=== PATIENT | female | born 1965 | race Caucasian/White ===

== ENCOUNTER 2016-03-17 10:30 | Outpatient (RCR) | payer OTHER ==
[~2016-03-17 10:30] MED LIST: CITA10TA PO; TRAZ150T42 PO
== END 2016-04-08 14:50 | disposition home or self-care (01) ==
PROVIDERS: ATTEND Nurse Practitioner Community Health
DX: M54.41 Lumbago with sciatica, right side (principal)

== ENCOUNTER 2016-03-26 09:25 | Outpatient (CLI) | payer OTHER ==
[~2016-03-26] VITALS: Ht 160 cm; Wt 63.5 kg
[2016-03-26] MEDS ORDERED: BUPIVACAINE 0.25% 30 ML (SENSORCAINE) VIAL ONE (09:28)
[2016-03-26] MEDS ORDERED: TRIAMCINOLONE ACET (KENALOG-40) 40 MG/ML 1 ML VIAL ONE (09:29)
[2016-03-26 09:43] VITALS: BP 121/107
[2016-03-26 10:01] VITALS: BP 114/80
--- NOTE | 2016-03-26 14:08 | Pain Medicine-Procedure ---
Procedure Pre-Op/Post-Op Diagnosis Diagnosis: disc disorder with radiculopathy, lumbar Indications for Operation Low back pain Attending Surgeon Farzana Procedure Date of Service: Mar 26, 2016 Procedure: Lumbar Epidural Steroid Injection at the L5-S1 level under Fluoroscopic Guidance Procedure: Patient was identified in the holding area. After risks, benefits, and alternatives were discussed with the patient, informed consent was obtained. Patient was brought to the fluoroscopy suite and placed prone on the procedure room table. A time out was performed. Vital signs were monitored throughout the procedure. The patients low back was prepped and draped in the usual sterile fashion. The patients skin was anesthetized using 2% Lidocaine. A Tuohy needle was inserted and advanced to the L5-S1 epidural space under fluoroscopic guidance using the loss of resistance technique and intermittent projection of fluoroscopy. There was no paresthesia with needle placement. The needle position was confirmed in both the AP and lateral view. After negative aspiration 2ml of contrast was injected under live fluoroscopy which showed good spread of the contrast in the epidural space at the appropriate level, there was no intravascular or subarachnoid spread. Again, after negative aspiration for heme or CSF, 2 ml of 0.25% Bupivicaine, 2ml of preservative free normal saline, and 80mg of Kenalog was injected. The needle was removed and a sterile bandage was placed and the patient was transferred to the recovery area in stable condition. After a brief period of observation, patient was discharged to home with no new neurological deficits and no apparent complications. Complications None MOO POWERS MD Mar 26, 2016 2:08 pm
== END 2016-03-26 10:02 | disposition home or self-care (01) ==
LOC: CARD 09:25
PROVIDERS: ATTEND Pain Medicine Pain Medicine
DX: M51.16 Intervertebral disc disorders with radiculopathy, lumbar region (principal); M43.16 Spondylolisthesis, lumbar region; Z79.899 Other long term (current) drug therapy
CPT/HCPCS: 62323

== ENCOUNTER 2016-05-21 07:54 | Outpatient (CLI) | payer OTHER ==
[~2016-05-21] VITALS: Ht 160 cm; Wt 63.5 kg
--- OUTSIDE RECORDS SUMMARY | 2016-05-21 08:00 | XMS REPORT | Continuity of Care Document ---
Author Author [facility] Organization [facility] Address Unknown Phone Unavailable Care Team Providers Care County Program Technician Name Role Phone PCP Unavailable Source Comments Some departments are not documenting in the electronic medical record. If you do not see the information that you expected, contact Release of Information in the Health Information Management department at [phone] for further assistance in locating additional records.[facility] Active Allergies and Adverse Reactions Not on File Current Medications Not on file Active Problems Not on file Social History Tobacco Use Types Packs/Day Years Used Date Never Assessed Plan of Care Date Type Specialty Providers Description 08/23/2016 Appointment Orthopedic Surgery Shaista Crawford MD [address] [facility] [address] [place] [address] [phone] (Fax) Health Maintenance Due Date Last Done Comments Physical (Comprehensive) 1973 Exam Pertussis Vaccine 1977 Tetanus Vaccine 06/07/1983 Cervical Cancer Screening 06/07/1987 Breast Cancer Screening 2006 Influenza Vaccine 11/05/2016 Results from Last 3 Months Not on file
[2016-05-21] MEDS ORDERED: TRIAMCINOLONE ACET (KENALOG-40) 40 MG/ML 1 ML VIAL ONE (08:06)
[2016-05-21] MEDS ORDERED: LIDOCAINE 1% INJ 20 ML (XYLOCAINE) VIAL ONE (08:06)
[2016-05-21] MEDS ORDERED: BUPIVACAINE 0.25% 30 ML (SENSORCAINE) VIAL ONE (08:06)
[2016-05-21 08:11] VITALS: BP 133/83
[2016-05-21 08:52] VITALS: BP 133/78
--- NOTE | 2016-05-21 11:58 | Pain Medicine-Procedure ---
Procedure Pre-Op/Post-Op Diagnosis Diagnosis: disc disorder with radiculopathy, lumbar Indications for Operation Low back pain Attending Surgeon Farzana Procedure Date of Service: May 21, 2016 Procedure: Lumbar Epidural Steroid Injection at the L5-S1 level under Fluoroscopic Guidance Procedure: Patient was identified in the holding area. After risks, benefits, and alternatives were discussed with the patient, informed consent was obtained. Patient was brought to the fluoroscopy suite and placed prone on the procedure room table. A time out was performed. Vital signs were monitored throughout the procedure. The patients low back was prepped and draped in the usual sterile fashion. The patients skin was anesthetized using 2% Lidocaine. A Tuohy needle was inserted and advanced to the L5-S1 epidural space under fluoroscopic guidance using the loss of resistance technique and intermittent projection of fluoroscopy. There was no paresthesia with needle placement. The needle position was confirmed in both the AP and lateral view. After negative aspiration 2ml of contrast was injected under live fluoroscopy which showed good spread of the contrast in the epidural space at the appropriate level, there was no intravascular or subarachnoid spread. Again, after negative aspiration for heme or CSF, 2 ml of 0.25% Bupivicaine, 2ml of preservative free normal saline, and 80mg of Kenalog was injected. The needle was removed and a sterile bandage was placed and the patient was transferred to the recovery area in stable condition. After a brief period of observation, patient was discharged to home with no new neurological deficits and no apparent complications. Complications None MOO POWERS MD May 21, 2016 11:57 am
== END 2016-05-21 08:54 | disposition home or self-care (01) ==
LOC: CARD 07:54
PROVIDERS: ATTEND Pain Medicine Pain Medicine
DX: M51.16 Intervertebral disc disorders with radiculopathy, lumbar region (principal); M43.16 Spondylolisthesis, lumbar region; Z79.899 Other long term (current) drug therapy
CPT/HCPCS: 62323

== ENCOUNTER → 2016-12-17 | Outpatient (CLI) | payer OTHER ==
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
== END ==
LOC: RAD 13:12
PROVIDERS: ATTEND Nurse Practitioner Family
DX: F07.81 Postconcussional syndrome (principal)
CPT/HCPCS: 70450

== ENCOUNTER 2016-12-22 16:14 | Emergency (ER) | payer SELFPAY ==
[~2016-12-22] VITALS: Ht 160 cm; Wt 75.7 kg
--- OUTSIDE RECORDS SUMMARY | 2016-12-22 16:21 | XMS REPORT ---
Author Author AUDREY DUNCAN Organization [employer] Address Unknown Phone Unavailable Care Team Providers Care Load Dispatcher Local Name Role Phone AUDREY DUNCAN CP Unavailable Allergies, Adverse Reactions, Alerts Substance Reaction Event Type N.K.D.A. Info Not Available Non Drug Allergy Problems Problem Type Condition Code Onset Dates Condition Status Problem Lumbago with sciatica, right side M54.41 Active Problem Other chronic pain G89.29 Active Problem Lumbago with sciatica, left side M54.42 Active Assessment Other chronic pain G89.29 Active Assessment Lumbago with sciatica, left side M54.42 Active Assessment Lumbago with sciatica, right side M54.41 Active Medications No Known Medications Procedures Procedure Coding System Code Date Office Visit, Est Pt., Level 3 CPT-4 19241 Dec 12, 2015 TORADOL (IM) 60 MG/2ML (UP TO 15 MG) CPT-4 J1885 Dec 12, 2015 X-RAY EXAM OF LOWER SPINE CPT-4 22853 Dec 12, 2015 DEPO MEDROL 40 MG/ML CPT-4 J1030 Dec 12, 2015 THER/PROPH/DIAG INJ, SC/IM CPT-4 07954 Dec 12, 2015 Vital Signs Date/Time: Dec 12, 2015 Cardiac Monitoring Heart Rate 90 bpm Weight 145 lbs Height 64 in BMI 24.89 Index Blood Pressure Diastolic 80 mmHg Blood Pressure Systolic 122 mmHg Results No Known Results Summary Purpose [employer] Submission
--- OUTSIDE RECORDS SUMMARY | 2016-12-22 16:21 | XMS REPORT ---
Author Author SURAJ DELUNA [facility] Address [address] [place] [address] Care Team Providers Care Carry Out Clerk And Shelf Stocker Name Role Phone SURAJ DELUNA Unavailable PROBLEMS Type Condition ICD9-CM Code [id number] Code Onset Dates Condition Status SNOMED Code Problem Back pain of lumbar region with sciatica M54.40 Active 504299189 Problem Lumbago with sciatica, left side M54.42 Active 221723324 Assessment Back pain of lumbar region with sciatica M54.40 Feb, Active 777087879 Assessment Homeless Z59.0 Feb, Active 01574479 Problem Lumbago with sciatica, right side M54.41 Active 833124182 Problem Other chronic pain G89.29 Active 67801791 ALLERGIES Substance Reaction Event Type Date Status N.K.D.A. Unknown Non Drug Allergy Feb, Unknown SOCIAL HISTORY No smoking Hx information available PLAN OF CARE VITAL SIGNS Height 64 in 2016-02-12 Weight 140.7 lbs 2016-02-12 Heart Rate 80 bpm 2016-02-12 Respiratory Rate 18 2016-02-12 BMI 24.15 kg/m2 2016-02-12 Blood pressure systolic 108 mmHg 2016-02-12 Blood pressure diastolic 72 mmHg 2016-02-12 MEDICATIONS Medication Instructions Dosage Frequency Start Date End Date Duration Status Gabapentin 300 MG Orally 3 times a day 1 capsule 8h Jan, Active RESULTS No Results PROCEDURES Procedure Date Ordered Related Diagnosis Body Site Office Visit, Est Pt., Level 3 Feb 12, 2016 IMMUNIZATIONS No Known Immunizations
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
--- OUTSIDE RECORDS SUMMARY | 2016-12-22 16:21 | XMS REPORT ---
Author Author NARDA LIVINGSTON [facility] Address [address] [place] [address] Care Team Providers Care Vamp Cut Out Worker Name Role Phone NARDA LIVINGSTON Unavailable PROBLEMS Type Condition ICD9-CM Code [id number] Code Onset Dates Condition Status SNOMED Code Problem Lumbago with sciatica, right side M54.41 Active 502890725 Problem Lumbago with sciatica, left side M54.42 Active 653245753 Problem Primary osteoarthritis of both knees M17.0 Active 540044518 Problem Pain in right knee M25.561 Active 54237863 Problem Back pain of lumbar region with sciatica M54.40 Active 339948164 Problem Other chronic pain G89.29 Active 33141335 Problem Pain in left knee M25.562 Active 69573412 Problem Lumbago with sciatica, unspecified side M54.40 Active 325017916 ALLERGIES No Information SOCIAL HISTORY Never Assessed PLAN OF CARE Activity Details Follow Up prn Reason: VITAL SIGNS Height 64 in 2016-04-22 Blood pressure systolic 122 mmHg 2016-04-22 Blood pressure diastolic 76 mmHg 2016-04-22 MEDICATIONS Unknown Medications RESULTS No Results PROCEDURES No Known procedures IMMUNIZATIONS No Known Immunizations MEDICAL (GENERAL) HISTORY Type Description Date Medical History anxiety Medical History shingles Medical History bakers cyst- knee Medical History chronic back pain Surgical History lumpectomy left breast Surgical History right ankle surgery 2001
--- OUTSIDE RECORDS SUMMARY | 2016-12-22 16:21 | XMS REPORT ---
Author Author SEE ZAZUETA [facility] e[employer] Address Unknown Phone Unavailable Care Team Providers Care Vision Care Associate Name Role Phone SEE ZAZUETA CP Unavailable Allergies, Adverse Reactions, Alerts Substance Reaction Event Type N.K.D.A. Info Not Available Non Drug Allergy Problems Problem Type Condition Code Onset Dates Condition Status Assessment Encounter for immunization Z23 Active Assessment Back pain of lumbar region with sciatica M54.40 Active Medications Medication Code System Code Instructions Start Date End Date Status Dosage PredniSONE [facility] [address]-60 50 MG Orally Once a day Oct 19, 2015 Oct 24, 2015 1 tablet Ibuprofen [facility] [address]-82 800 MG Orally Three times a day Oct 19, 2015 Oct 24, 2015 1 tablet Procedures Procedure Coding System Code Date THER/PROPH/DIAG INJ, SC/IM CPT-4 42952 Oct 21, 2015 TDAP (BOOSTRIX) CPT-4 75689 Oct 21, 2015 TORADOL (IM) 60 MG/2ML (UP TO 15 MG) CPT-4 J1885 Oct 21, 2015 Office Visit, Est Pt., Level 4 CPT-4 07557 Oct 21, 2015 SINGLE IMMUNIZATION ADMIN CPT-4 98408 Oct 21, 2015 Vital Signs Date/Time: Oct 21, 2015 Cardiac Monitoring Heart Rate 88 bpm Weight 149.2 lbs Height 64 in BMI 25.61 Index Blood Pressure Diastolic 82 mmHg Blood Pressure Systolic 144 mmHg Results No Known Results Immunizations Vaccine Administration Date TDAP (BOOSTRIX) Oct 21, 2015 Summary Purpose eClinicalWorks Submission
--- OUTSIDE RECORDS SUMMARY | 2016-12-22 16:21 | XMS REPORT ---
Author Author SURAJ DELUNA Organization [employer] Address Unknown Phone Unavailable Care Team Providers Care Mold Stamper And Repairer Name Role Phone SURAJ DELUNA CP Unavailable Allergies No Known Allergies Problems Problem Type Condition Code Onset Dates Condition Status Problem Lumbago with sciatica, right side M54.41 Active Problem Other chronic pain G89.29 Active Problem Lumbago with sciatica, left side M54.42 Active Assessment Lumbago with sciatica, right side M54.41 Active Medications Medication Code System Code Instructions Start Date End Date Status Dosage Benadryl [facility] [address]-99 25 MG Orally not defined Gabapentin [facility] [address]-69 300 MG Orally 2 times a day Jan 16, 2016 1 capsule Results No Known Results Summary Purpose [employer]ClinicalWorks Submission
--- OUTSIDE RECORDS SUMMARY | 2016-12-22 16:21 | XMS REPORT ---
Author Author SURAJ DELUNA [facility] Address [address] [place] [address] Care Team Providers Care Automotive Brake Specialist Name Role Phone SURAJ DELUNA Unavailable PROBLEMS Type Condition ICD9-CM Code AQE12-DG Code Onset Dates Condition Status SNOMED Code Problem Other chronic pain G89.29 Active 20567758 Problem Pain in left knee M25.562 Active 66522963 Problem Pain in right knee M25.561 Active 04568567 Problem Lumbago with sciatica, left side M54.42 Active 087124098 Problem Lumbago with sciatica, right side M54.41 Active 683775664 Problem Lumbago with sciatica, unspecified side M54.40 Active 202766608 Problem Back pain of lumbar region with sciatica M54.40 Active 285487491 ALLERGIES Unknown Allergies SOCIAL HISTORY No smoking Hx information available PLAN OF CARE VITAL SIGNS MEDICATIONS Unknown Medications RESULTS No Results PROCEDURES No Known procedures IMMUNIZATIONS No Known Immunizations
--- OUTSIDE RECORDS SUMMARY | 2016-12-22 16:22 | XMS REPORT ---
Author Author SURAJ DELUNA [facility] Address [address] [place] [address] Care Team Providers Care Brake Drum Molder Name Role Phone SURAJ DELUNA Unavailable PROBLEMS Type Condition ICD9-CM Code ESW74-GQ Code Onset Dates Condition Status SNOMED Code Problem Lumbago with sciatica, left side M54.42 Active 756489468 Problem Pain in right knee M25.561 Active 39683598 Problem Pain in left knee M25.562 Active 40577279 Problem Other chronic pain G89.29 Active 53725470 Problem Lumbago with sciatica, right side M54.41 Active 839842369 Problem Lumbago with sciatica, unspecified side M54.40 Active 659230628 Problem Back pain of lumbar region with sciatica M54.40 Active 026809068 ALLERGIES Unknown Allergies SOCIAL HISTORY No smoking Hx information available PLAN OF CARE VITAL SIGNS MEDICATIONS Unknown Medications RESULTS No Results PROCEDURES No Known procedures IMMUNIZATIONS No Known Immunizations
--- OUTSIDE RECORDS SUMMARY | 2016-12-22 16:22 | XMS REPORT ---
Author Author SURAJ DELUNA [facility] Address [address] [place] [address] Care Team Providers Care Newspaper Peddler Name Role Phone SURAJ DELUNA Unavailable PROBLEMS Type Condition ICD9-CM Code OUX10-MD Code Onset Dates Condition Status SNOMED Code Problem Lumbago with sciatica, left side M54.42 Active 388269491 Problem Pain in right knee M25.561 Active 20256109 Problem Pain in left knee M25.562 Active 51289803 Problem Other chronic pain G89.29 Active 79768181 Problem Lumbago with sciatica, right side M54.41 Active 046256380 Problem Lumbago with sciatica, unspecified side M54.40 Active 297300249 Problem Back pain of lumbar region with sciatica M54.40 Active 560552233 ALLERGIES Unknown Allergies SOCIAL HISTORY No smoking Hx information available PLAN OF CARE VITAL SIGNS MEDICATIONS Unknown Medications RESULTS No Results PROCEDURES No Known procedures IMMUNIZATIONS No Known Immunizations
--- OUTSIDE RECORDS SUMMARY | 2016-12-22 16:22 | XMS REPORT ---
Author Author SURAJ DELUNA [facility] Address [address] [place] [address] Care Team Providers Care Weapons Specialist Name Role Phone SURAJ DELUNA Unavailable PROBLEMS Type Condition ICD9-CM Code XTC26-SF Code Onset Dates Condition Status SNOMED Code Problem Lumbago with sciatica, unspecified side M54.40 Active 410184126 Problem Back pain of lumbar region with sciatica M54.40 Active 976582713 Problem Other chronic pain G89.29 Active 01471229 Assessment Lumbago with sciatica, unspecified side M54.40 Feb, Active 534791717 Problem Lumbago with sciatica, left side M54.42 Active 769130868 Problem Lumbago with sciatica, right side M54.41 Active 280631685 ALLERGIES No Known Allergies SOCIAL HISTORY No smoking Hx information available PLAN OF CARE Activity Details Pending Test MRI : Lumbar w/o contrast ,Reason: VITAL SIGNS MEDICATIONS No Known Medications RESULTS Name Result Date Reference Range MRI : Lumbar w/o contrast 2016-02-19 PROCEDURES No Known procedures IMMUNIZATIONS No Known Immunizations
--- OUTSIDE RECORDS SUMMARY | 2016-12-22 16:22 | XMS REPORT ---
Author Author SEE ZAZUETA Organization [employer] Address Unknown Phone Unavailable Care Team Providers Care Music Composition Teacher Name Role Phone SEE ZAZUETA CP Unavailable Allergies No Known Allergies Problems No Known Problems Medications No Known Medications Results No Known Results Summary Purpose eClinicalWorks Submission
--- OUTSIDE RECORDS SUMMARY | 2016-12-22 16:22 | XMS REPORT ---
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
--- OUTSIDE RECORDS SUMMARY | 2016-12-22 16:22 | XMS REPORT ---
Author Author SURAJ DELUNA [facility] Address [address] [place] [address] Care Team Providers Care Correction Lieutenant Name Role Phone SURAJ DELUNA Unavailable PROBLEMS Type Condition ICD9-CM Code AFG04-HF Code Onset Dates Condition Status SNOMED Code Assessment Cervical cancer screening Z12.4 Feb, Active 369000451 Assessment Breast cancer screening Z12.39 Feb, Active 309707849 Problem Lumbago with sciatica, unspecified side M54.40 Active 819260972 Problem Back pain of lumbar region with sciatica M54.40 Active 304870694 Problem Other chronic pain G89.29 Active 26811130 Assessment Routine gynecological examination V72.31 Feb, Active 193876563773987 Problem Lumbago with sciatica, left side M54.42 Active 563817011 Problem Lumbago with sciatica, right side M54.41 Active 664922352 ALLERGIES Substance Reaction Event Type Date Status N.K.D.A. Unknown Non Drug Allergy Feb, Unknown SOCIAL HISTORY No smoking Hx information available PLAN OF CARE Activity Details Pending Test CULTURE, GENITAL Pending Test PAP TEST W/ HPV REGARDLESS Pending Test Mammogram, Bilateral Screening prn,Reason: VITAL SIGNS Height 64 in 2016-02-16 Weight 140.5 lbs 2016-02-16 Heart Rate 88 bpm 2016-02-16 Respiratory Rate 22 2016-02-16 BMI 24.11 kg/m2 2016-02-16 Blood pressure systolic 98 mmHg 2016-02-16 Blood pressure diastolic 78 mmHg 2016-02-16 MEDICATIONS Medication Instructions Dosage Frequency Start Date End Date Duration Status Gabapentin 300 MG Orally 3 times a day 1 capsule 8h Jan, Active RESULTS Name Result Date Reference Range PDF Report 2016-02-16 PDF Report1 LCLS CULTURE, GENITAL 2016-02-16 Genital Culture, Routine Final report Result 1 PAP TEST W/ HPV REGARDLESS 2016-02-16 DIAGNOSIS: Specimen adequacy: Clinician provided ICD10: Performed by: . . Pathologist provided ICD10: Note: HPV, high-risk Negative Negative Mammogram, Bilateral Screening 2016-02-19 PROCEDURES Procedure Date Ordered Related Diagnosis Body Site SPECIMEN HANDLING Feb 16, 2016 Office Visit, Est Pt., Level 4 Feb 16, 2016 CULTURE, BACTERIA, OTHER Feb 16, 2016 IMMUNIZATIONS No Known Immunizations
--- OUTSIDE RECORDS SUMMARY | 2016-12-22 16:22 | XMS REPORT ---
Author Author AMRANDA ROUSSEAU Organization [employer] Address Unknown Phone Unavailable Care Team Providers Care Leak Inspector Name Role Phone MARANDA ROUSSEAU CP Unavailable Allergies, Adverse Reactions, Alerts Substance Reaction Event Type N.K.D.A. 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 Problem Other specified menopausal and postmenopausal disorder 627.8 Active Problem Spasm of muscle 728.85 Active Problem Other syndromes affecting cervical region 723.8 Active Medications Medication Code System Code Instructions Start Date End Date Status Dosage PredniSONE [facility] [address]-03 50 MG Orally Once a day Oct 19, 2015 Oct 24, 2015 1 tablet PredniSONE [facility] [address]-30 10 MG Orally Once a day Oct 19, 2015 1 tablet Ibuprofen [facility] [address]-92 800 MG Orally Three times a day Oct 19, 2015 Oct 24, 2015 1 tablet Procedures Procedure Coding System Code Date Office Visit, Est Pt., Level 3 CPT-4 41067 Oct 19, 2015 Vital Signs Date/Time: Oct 19, 2015 Cardiac Monitoring Heart Rate 84 bpm Weight 144.2 lbs Height 64 in BMI 24.75 Index Blood Pressure Diastolic 76 mmHg Blood Pressure Systolic 118 mmHg Results No Known Results Summary Purpose [employer] Submission
--- OUTSIDE RECORDS SUMMARY | 2016-12-22 16:24 | XMS REPORT | Continuity of Care Document ---
Author Author [facility] Address Unknown Phone Unavailable Allergies Active Description Code Type Severity Reaction Onset Reported/Identified Relationship to Patient Clinical Status Yes Methotrexate Drug Allergy 07/14/2010 Yes Methotrexate Drug Allergy N/A N/A 07/14/2010 Yes No Allergy Information Available [id number] Drug Allergy Unknown N/A 11/28/2011 Medications Problems Date Dx Coded Attending Type Code Diagnosis Diagnosed By 02/03/1449 SURAJ DELUNA Ot M54.41 LUMBAGO WITH SCIATICA, RIGHT SIDE 09/12/2007 296.90 MOOD DISORDER 09/12/2007 401.1 HYPERTENSION, BENIGN ESSENTIAL 09/12/2007 466.0 Bronchitis, Acute 09/12/2007 296.90 MOOD DISORDER 09/12/2007 401.1 HYPERTENSION, BENIGN ESSENTIAL 09/12/2007 466.0 Bronchitis, Acute 09/12/2007 PASCUAL DO, EVY K 296.90 MOOD DISORDER 09/12/2007 PASCUAL DO, EVY K 401.1 HYPERTENSION, BENIGN ESSENTIAL 09/12/2007 PASCUAL DO, EVY K 466.0 Bronchitis, Acute 09/12/2007 296.90 MOOD DISORDER 09/12/2007 401.1 HYPERTENSION, BENIGN ESSENTIAL 09/12/2007 466.0 Bronchitis, Acute 09/12/2007 CLINTON XIAO APRN ELISA N 296.90 MOOD DISORDER 09/12/2007 ALONZO CASHDARREN WORK DISTRIBUTOR, ELISA N 401.1 HYPERTENSION, BENIGN ESSENTIAL 09/12/2007 ALONZO CASHERO WORK DISTRIBUTOR, ELISA N 466.0 Bronchitis, Acute 09/12/2007 PASCUAL DO, EVY K 296.90 MOOD DISORDER 09/12/2007 PASCUAL DO, EVY K 401.1 HYPERTENSION, BENIGN ESSENTIAL 09/12/2007 PASCUAL DO, EVY K 466.0 Bronchitis, Acute 09/12/2007 PASCUAL DO, EVY K 296.90 MOOD DISORDER 09/12/2007 PASCUAL DO, EVY K 401.1 HYPERTENSION, BENIGN ESSENTIAL 09/12/2007 PASCUAL DO, EVY K 466.0 Bronchitis, Acute 09/12/2007 PASCUAL DO EVY K 296.90 MOOD DISORDER 09/12/2007 PASCUAL DO EVY K 401.1 HYPERTENSION, BENIGN ESSENTIAL 09/12/2007 PASCUAL DO EVY K 466.0 Bronchitis, Acute 09/27/2007 465.9 Upper Respiratory Infection 09/27/2007 465.9 Upper Respiratory Infection 09/27/2007 PASCUAL DO EVY K 465.9 Upper Respiratory Infection 09/27/2007 465.9 Upper Respiratory Infection 09/27/2007 JHONATHAN ASHLEY APRNCY N 465.9 Upper Respiratory Infection 09/27/2007 PASCUAL DO EVY K 465.9 Upper Respiratory Infection 09/27/2007 PASCUAL DO EVY K 465.9 Upper Respiratory Infection 09/27/2007 PASCUAL DO EVY K 465.9 Upper Respiratory Infection 09/28/2007 V25.40 CONTRACEPTIVE SURVEILLANCE UNSPECIFIED 09/28/2007 V25.40 CONTRACEPTIVE SURVEILLANCE UNSPECIFIED 09/28/2007 ROSELINE PASCUAL DOA K V25.40 CONTRACEPTIVE SURVEILLANCE UNSPECIFIED 09/28/2007 V25.40 CONTRACEPTIVE SURVEILLANCE UNSPECIFIED 09/28/2007 ELISA ASHLEY APRN N V25.40 CONTRACEPTIVE SURVEILLANCE UNSPECIFIED 09/28/2007 PASCUAL DO EVY K V25.40 CONTRACEPTIVE SURVEILLANCE UNSPECIFIED 09/28/2007 SAMARA MONTENEGRO EVY K V25.40 CONTRACEPTIVE SURVEILLANCE UNSPECIFIED 09/28/2007 PASCUAL DO EVY K V25.40 CONTRACEPTIVE SURVEILLANCE UNSPECIFIED 12/14/2007 V25.49 SURVEILLANCE OF OTHER CONTRACEPTIVE METHOD 12/14/2007 V25.49 SURVEILLANCE OF OTHER CONTRACEPTIVE METHOD 12/14/2007 ROSELINE PASCUAL DOA K V25.49 SURVEILLANCE OF OTHER CONTRACEPTIVE METHOD 12/14/2007 V25.49 SURVEILLANCE OF OTHER CONTRACEPTIVE METHOD 12/14/2007 ELISA ASHLEY APRN N V25.49 SURVEILLANCE OF OTHER CONTRACEPTIVE METHOD 12/14/2007 PASCUAL DO EVY K V25.49 SURVEILLANCE OF OTHER CONTRACEPTIVE METHOD 12/14/2007 PASCUAL DO EVY K V25.49 SURVEILLANCE OF OTHER CONTRACEPTIVE METHOD 12/14/2007 PASCUAL DO EVY K V25.49 SURVEILLANCE OF OTHER CONTRACEPTIVE METHOD 06/21/2008 381.4 Otitis Media Nonsuppurative Both Ears 06/21/2008 462 Acute Pharyngitis 06/21/2008 787.91 Diarrhea 06/21/2008 381.4 Otitis Media Nonsuppurative Both Ears 06/21/2008 462 Acute Pharyngitis 06/21/2008 787.91 Diarrhea 06/21/2008 PASCUAL DO, EVY K 381.4 Otitis Media Nonsuppurative Both Ears 06/21/2008 PASCUAL DO, EVY K 462 Acute Pharyngitis 06/21/2008 PASCUAL DO, EVY K 787.91 Diarrhea 06/21/2008 381.4 Otitis Media Nonsuppurative Both Ears 06/21/2008 462 Acute Pharyngitis 06/21/2008 787.91 Diarrhea 06/21/2008 ALONZO CASHERO WORK DISTRIBUTOR, ELISA N 381.4 Otitis Media Nonsuppurative Both Ears 06/21/2008 ALONZO CASHERO WORK DISTRIBUTOR, ELISA N 462 Acute Pharyngitis 06/21/2008 ALONZO CASHERO WORK DISTRIBUTOR, ELISA N 787.91 Diarrhea 06/21/2008 PASCUAL DO EVY K 381.4 Otitis Media Nonsuppurative Both Ears 06/21/2008 PASCUAL DO, EVY K 462 Acute Pharyngitis 06/21/2008 PASCUAL DO, EVY K 787.91 Diarrhea 06/21/2008 PASCUAL DO, EVY K 381.4 Otitis Media Nonsuppurative Both Ears 06/21/2008 PASCUAL DO, EVY K 462 Acute Pharyngitis 06/21/2008 PASCUAL DO, EVY K 787.91 Diarrhea 06/21/2008 PASCUAL DO, EVY K 381.4 Otitis Media Nonsuppurative Both Ears 06/21/2008 PASCUAL DO, EVY K 462 Acute Pharyngitis 06/21/2008 PASCUAL DO, EVY K 787.91 Diarrhea 01/03/2009 627.9 MENOPAUSAL AND POSTMENOPAUSAL DISORDER UNSPECIFIED 01/03/2009 719.08 EFFUSION OF JOINT, OTHER SPECIFIED SITES 01/03/2009 627.9 MENOPAUSAL AND POSTMENOPAUSAL DISORDER UNSPECIFIED 01/03/2009 719.08 EFFUSION OF JOINT, OTHER SPECIFIED SITES 01/03/2009 PASCUAL DO EVY K 627.9 MENOPAUSAL AND POSTMENOPAUSAL DISORDER UNSPECIFIED 01/03/2009 PASCUAL DO EVY K 719.08 EFFUSION OF JOINT, OTHER SPECIFIED SITES 01/03/2009 627.9 MENOPAUSAL AND POSTMENOPAUSAL DISORDER UNSPECIFIED 01/03/2009 719.08 EFFUSION OF JOINT, OTHER SPECIFIED SITES 01/03/2009 CLINTON XIAO APRKavon ELISA N 627.9 MENOPAUSAL AND POSTMENOPAUSAL DISORDER UNSPECIFIED 01/03/2009 CLINTON XIAO APRKavon ELISA N 719.08 EFFUSION OF JOINT, OTHER SPECIFIED SITES 01/03/2009 PASCUAL DO, EVY K 627.9 MENOPAUSAL AND POSTMENOPAUSAL DISORDER UNSPECIFIED 01/03/2009 PASCUAL DO, EVY K 719.08 EFFUSION OF JOINT, OTHER SPECIFIED SITES 01/03/2009 PASCUAL DO, EVY K 627.9 MENOPAUSAL AND POSTMENOPAUSAL DISORDER UNSPECIFIED 01/03/2009 PASCUAL DO, EVY K 719.08 EFFUSION OF JOINT, OTHER SPECIFIED SITES 01/03/2009 PASCUAL DO, EVY K 627.9 MENOPAUSAL AND POSTMENOPAUSAL DISORDER UNSPECIFIED 01/03/2009 PASCUAL DO, EVY K 719.08 EFFUSION OF JOINT, OTHER SPECIFIED SITES 01/07/2009 719.46 PAIN IN JOINT, LOWER LEG 01/07/2009 719.46 PAIN IN JOINT, LOWER LEG 01/07/2009 PASCUAL DO, EVY K 719.46 PAIN IN JOINT, LOWER LEG 01/07/2009 719.46 PAIN IN JOINT, LOWER LEG 01/07/2009 CLINTON XIAO APRKavon ELISA N 719.46 PAIN IN JOINT, LOWER LEG 01/07/2009 PASCUAL DO, EVY K 719.46 PAIN IN JOINT, LOWER LEG 01/07/2009 PASCUAL DO, EVY K 719.46 PAIN IN JOINT, LOWER LEG 01/07/2009 PASCUAL DO, EVY K 719.46 PAIN IN JOINT, LOWER LEG 01/24/2009 715.96 OSTEOARTHRITIS KNEE 01/24/2009 715.96 OSTEOARTHRITIS KNEE 01/24/2009 PASCUAL DO, EVY K 715.96 OSTEOARTHRITIS KNEE 01/24/2009 715.96 OSTEOARTHRITIS KNEE 01/24/2009 CLINTON XIAO APRKavon ELISA N 715.96 OSTEOARTHRITIS KNEE 01/24/2009 PASCUAL DO, EVY K 715.96 OSTEOARTHRITIS KNEE 01/24/2009 PASCUAL DO, EVY K 715.96 OSTEOARTHRITIS KNEE 01/24/2009 PASCUAL DO, EVY K 715.96 OSTEOARTHRITIS KNEE 03/26/2009 388.70 Otalgia, Unspecified 03/26/2009 388.70 Otalgia, Unspecified 03/26/2009 PASCUAL DO, EVY K 388.70 Otalgia, Unspecified 03/26/2009 388.70 Otalgia, Unspecified 03/26/2009 ELISA ASHLEY APRN N 388.70 Otalgia, Unspecified 03/26/2009 PASCUAL DO, EVY K 388.70 Otalgia, Unspecified 03/26/2009 PASCUAL DO, EVY K 388.70 Otalgia, Unspecified 03/26/2009 PASCUAL DO, EVY K 388.70 Otalgia, Unspecified 04/08/2009 381.81 DYSFUNCTION OF EUSTACHIAN TUBE 04/08/2009 719.49 PAIN IN JOINT, MULTIPLE SITES 04/08/2009 780.79 OTHER MALAISE AND FATIGUE 04/08/2009 783.1 ABNORMAL WEIGHT GAIN 04/08/2009 E987.9 Falling From Unspecified Site, Undetermined Whether Accidentally Or Purposely Inflicted 04/08/2009 381.81 DYSFUNCTION OF EUSTACHIAN TUBE 04/08/2009 719.49 PAIN IN JOINT, MULTIPLE SITES 04/08/2009 780.79 OTHER MALAISE AND FATIGUE 04/08/2009 783.1 ABNORMAL WEIGHT GAIN 04/08/2009 E987.9 Falling From Unspecified Site, Undetermined Whether Accidentally Or Purposely Inflicted 04/08/2009 PASCUAL DO, EVY K 381.81 DYSFUNCTION OF EUSTACHIAN TUBE 04/08/2009 PASCUAL DO, EVY K 719.49 PAIN IN JOINT, MULTIPLE SITES 04/08/2009 PASCUAL DO, EVY K 780.79 OTHER MALAISE AND FATIGUE 04/08/2009 PASCUAL DO, EVY K 783.1 ABNORMAL WEIGHT GAIN 04/08/2009 PASCAUL DO, EVY K E987.9 Falling From Unspecified Site, Undetermined Whether Accidentally Or Purposely Inflicted 04/08/2009 381.81 DYSFUNCTION OF EUSTACHIAN TUBE 04/08/2009 719.49 PAIN IN JOINT, MULTIPLE SITES 04/08/2009 780.79 OTHER MALAISE AND FATIGUE 04/08/2009 783.1 ABNORMAL WEIGHT GAIN 04/08/2009 E987.9 Falling From Unspecified Site, Undetermined Whether Accidentally Or Purposely Inflicted 04/08/2009 ELISA ASHLEY APRN N 381.81 DYSFUNCTION OF EUSTACHIAN TUBE 04/08/2009 CLINTON XIAO APRN ELISA N 719.49 PAIN IN JOINT, MULTIPLE SITES 04/08/2009 JHONATHAN ASHLEY APRNCY N 780.79 OTHER MALAISE AND FATIGUE 04/08/2009 ELISA ASHLEY APRN N 783.1 ABNORMAL WEIGHT GAIN 04/08/2009 ELISA ASHLEY APRN N E987.9 Falling From Unspecified Site, Undetermined Whether Accidentally Or Purposely Inflicted 04/08/2009 PASCUAL DO, EVY K 381.81 DYSFUNCTION OF EUSTACHIAN TUBE 04/08/2009 PASCUAL DO, EVY K 719.49 PAIN IN JOINT, MULTIPLE SITES 04/08/2009 PASCUAL DO, EVY K 780.79 OTHER MALAISE AND FATIGUE 04/08/2009 PASCUAL DO, EVY K 783.1 ABNORMAL WEIGHT GAIN 04/08/2009 PASCUAL DO, EVY K E987.9 Falling From Unspecified Site, Undetermined Whether Accidentally Or Purposely Inflicted 04/08/2009 PASCUAL DO, EVY K 381.81 DYSFUNCTION OF EUSTACHIAN TUBE 04/08/2009 PASCUAL DO, EVY K 719.49 PAIN IN JOINT, MULTIPLE SITES 04/08/2009 PASCUAL DO, EVY K 780.79 OTHER MALAISE AND FATIGUE 04/08/2009 PASCUAL DO, EVY K 783.1 ABNORMAL WEIGHT GAIN 04/08/2009 PASCUAL DO, EVY K E987.9 Falling From Unspecified Site, Undetermined Whether Accidentally Or Purposely Inflicted 04/08/2009 PASCUAL DO, EVY K 381.81 DYSFUNCTION OF EUSTACHIAN TUBE 04/08/2009 PASCUAL DO, EVY K 719.49 PAIN IN JOINT, MULTIPLE SITES 04/08/2009 PASCUAL DO, EVY K 780.79 OTHER MALAISE AND FATIGUE 04/08/2009 PASCUAL DO, EVY K 783.1 ABNORMAL WEIGHT GAIN 04/08/2009 PASCUAL DO, EVY K E987.9 Falling From Unspecified Site, Undetermined Whether Accidentally Or Purposely Inflicted 07/08/2009 729.5 PAIN IN LIMB 07/08/2009 729.5 PAIN IN LIMB 07/08/2009 PASCUAL DO, EVY K 729.5 PAIN IN LIMB 07/08/2009 729.5 PAIN IN LIMB 07/08/2009 CLINTON XIAO APRN ELISA N 729.5 PAIN IN LIMB 07/08/2009 PASCUAL DO, EVY K 729.5 PAIN IN LIMB 07/08/2009 PASCUAL DO, EVY K 729.5 PAIN IN LIMB 07/08/2009 PASCUAL DO, EVY K 729.5 PAIN IN LIMB 08/05/2009 053.9 HERPES ZOSTER, WITHOUT MENTION OF COMPLICATION 08/05/2009 692.9 Contact Dermatitis And Other Eczema, Unspecified Cause 08/05/2009 053.9 HERPES ZOSTER, WITHOUT MENTION OF COMPLICATION 08/05/2009 692.9 Contact Dermatitis And Other Eczema, Unspecified Cause 08/05/2009 PASCUAL DO, EVY K 053.9 HERPES ZOSTER, WITHOUT MENTION OF COMPLICATION 08/05/2009 PASCUAL DO, EVY K 692.9 Contact Dermatitis And Other Eczema, Unspecified Cause 08/05/2009 053.9 HERPES ZOSTER, WITHOUT MENTION OF COMPLICATION 08/05/2009 692.9 Contact Dermatitis And Other Eczema, Unspecified Cause 08/05/2009 ELISA ASHLEY APRN N 053.9 HERPES ZOSTER, WITHOUT MENTION OF COMPLICATION 08/05/2009 ELSIA ASHLEY APRN N 692.9 Contact Dermatitis And Other Eczema, Unspecified Cause 08/05/2009 PASCUAL DO, EVY K 053.9 HERPES ZOSTER, WITHOUT MENTION OF COMPLICATION 08/05/2009 PASCUAL DO, EVY K 692.9 Contact Dermatitis And Other Eczema, Unspecified Cause 08/05/2009 PASCUAL DO, EVY K 053.9 HERPES ZOSTER, WITHOUT MENTION OF COMPLICATION 08/05/2009 PASCUAL DO, EVY K 692.9 Contact Dermatitis And Other Eczema, Unspecified Cause 08/05/2009 PASCUAL DO, EVY K 053.9 HERPES ZOSTER, WITHOUT MENTION OF COMPLICATION 08/05/2009 PASCUAL DO, EVY K 692.9 Contact Dermatitis And Other Eczema, Unspecified Cause 08/09/2009 053.9 HERPES ZOSTER, WITHOUT MENTION OF COMPLICATION 08/09/2009 300.00 ANXIETY UNSPEC 08/09/2009 698.9 Pruritus Nos 08/09/2009 053.9 HERPES ZOSTER, WITHOUT MENTION OF COMPLICATION 08/09/2009 300.00 ANXIETY UNSPEC 08/09/2009 698.9 Pruritus Nos 08/09/2009 PASCUAL DO, EVY K 053.9 HERPES ZOSTER, WITHOUT MENTION OF COMPLICATION 08/09/2009 PASCUAL DO, EVY K 300.00 ANXIETY UNSPEC 08/09/2009 PASCUAL DO, EVY K 698.9 Pruritus Nos 08/09/2009 053.9 HERPES ZOSTER, WITHOUT MENTION OF COMPLICATION 08/09/2009 300.00 ANXIETY UNSPEC 08/09/2009 698.9 Pruritus Nos 08/09/2009 ALONZO CASHERO WORK DISTRIBUTOR, ELISA N 053.9 HERPES ZOSTER, WITHOUT MENTION OF COMPLICATION 08/09/2009 ALONZO CASHERO WORK DISTRIBUTOR, ELISA N 300.00 ANXIETY UNSPEC 08/09/2009 ALONZO CASHERO WORK DISTRIBUTOR, ELISA N 698.9 Pruritus Nos 08/09/2009 PASCUAL DO, EVY K 053.9 HERPES ZOSTER, WITHOUT MENTION OF COMPLICATION 08/09/2009 PASCUAL DO, EVY K 300.00 ANXIETY UNSPEC 08/09/2009 PASCUAL DO, EVY K 698.9 Pruritus Nos 08/09/2009 PASCUAL DO, VEY K 053.9 HERPES ZOSTER, WITHOUT MENTION OF COMPLICATION 08/09/2009 PASCUAL DO, EVY K 300.00 ANXIETY UNSPEC 08/09/2009 PASCUAL DO, EVY K 698.9 Pruritus Nos 08/09/2009 PASCUAL DO, EVY K 053.9 HERPES ZOSTER, WITHOUT MENTION OF COMPLICATION 08/09/2009 PASCUAL DO, EVY K 300.00 ANXIETY UNSPEC 08/09/2009 PASCUAL DO, EVY K 698.9 Pruritus Nos 08/19/2009 724.5 BACKACHE UNSPECIFIED 08/19/2009 788.1 Dysuria 08/19/2009 788.63 Urinary Urgency 08/19/2009 724.5 BACKACHE UNSPECIFIED 08/19/2009 788.1 Dysuria 08/19/2009 788.63 Urinary Urgency 08/19/2009 PASCUAL DO, EVY K 724.5 BACKACHE UNSPECIFIED 08/19/2009 PASCUAL DO, EVY K 788.1 Dysuria 08/19/2009 PASCUAL DO, EVY K 788.63 Urinary Urgency 08/19/2009 724.5 BACKACHE UNSPECIFIED 08/19/2009 788.1 Dysuria 08/19/2009 788.63 Urinary Urgency 08/19/2009 ALONZO CASHERO WORK DISTRIBUTOR, ELISA N 724.5 BACKACHE UNSPECIFIED 08/19/2009 ALONZO CASHERO WORK DISTRIBUTOR, ELISA N 788.1 Dysuria 08/19/2009 ALONZO CASHERO WORK DISTRIBUTOR, ELISA N 788.63 Urinary Urgency 08/19/2009 PASCUAL DO, EVY K 724.5 BACKACHE UNSPECIFIED 08/19/2009 PASCUAL DO, EVY K 788.1 Dysuria 08/19/2009 PASCUAL DO, EVY K 788.63 Urinary Urgency 08/19/2009 PASCUAL DO, EVY K 724.5 BACKACHE UNSPECIFIED 08/19/2009 PASCUAL DO, EVY K 788.1 Dysuria 08/19/2009 PASCUAL DO, EVY K 788.63 Urinary Urgency 08/19/2009 PASCUAL DO, EVY K 724.5 BACKACHE UNSPECIFIED 08/19/2009 PASCUAL DO, EVY K 788.1 Dysuria 08/19/2009 PASCUAL DO, EVY K 788.63 Urinary Urgency 11/12/2009 054.10 HERPES SIMPLEX GENITAL 11/12/2009 922.1 Contusion Of Trunk, Chest Wall 11/12/2009 V68.1 Issue Of Repeat Prescriptions 11/12/2009 054.10 HERPES SIMPLEX GENITAL 11/12/2009 922.1 Contusion Of Trunk, Chest Wall 11/12/2009 V68.1 Issue Of Repeat Prescriptions 11/12/2009 PASCUAL DO, EVY K 054.10 HERPES SIMPLEX GENITAL 11/12/2009 PASCUAL DO, EVY K 922.1 Contusion Of Trunk, Chest Wall 11/12/2009 PASCUAL DO, EVY K V68.1 Issue Of Repeat Prescriptions 11/12/2009 054.10 HERPES SIMPLEX GENITAL 11/12/2009 922.1 Contusion Of Trunk, Chest Wall 11/12/2009 V68.1 Issue Of Repeat Prescriptions 11/12/2009 ALONZO CASHERO WORK DISTRIBUTOR, ELISA N 054.10 HERPES SIMPLEX GENITAL 11/12/2009 ALONZO CASHERO WORK DISTRIBUTOR, ELISA N 922.1 Contusion Of Trunk, Chest Wall 11/12/2009 ALONZO CASHERO WORK DISTRIBUTOR, ELISA N V68.1 Issue Of Repeat Prescriptions 11/12/2009 PASCUAL DO, EVY K 054.10 HERPES SIMPLEX GENITAL 11/12/2009 PASCUAL DO, EVY K 922.1 Contusion Of Trunk, Chest Wall 11/12/2009 PASCUAL DO, EVY K V68.1 Issue Of Repeat Prescriptions 11/12/2009 EVY PASCUAL DO 054.10 HERPES SIMPLEX GENITAL 11/12/2009 EVY PASCUAL DO 922.1 Contusion Of Trunk, Chest Wall 11/12/2009 EVY PASCUAL DO V68.1 Issue Of Repeat Prescriptions 11/12/2009 EVY PASCUAL DO 054.10 HERPES SIMPLEX GENITAL 11/12/2009 EVY PASCUAL DO 922.1 Contusion Of Trunk, Chest Wall 11/12/2009 EVY PASCUAL DO V68.1 Issue Of Repeat Prescriptions 11/26/2009 300.02 AN GEN ANXIETY 11/26/2009 300.02 AN GEN ANXIETY 11/26/2009 EVY PASCUAL DO 300.02 AN GEN ANXIETY 11/26/2009 300.02 AN GEN ANXIETY 11/26/2009 ELISA ASHLEY APRN N 300.02 AN GEN ANXIETY 11/26/2009 EVY PASCUAL DO 300.02 AN GEN ANXIETY 11/26/2009 EVY PASCUAL DO 300.02 AN GEN ANXIETY 11/26/2009 EVY PASCUAL DO 300.02 AN GEN ANXIETY 02/20/2010 623.5 Leukorrhea Not Specified As Infective 02/20/2010 623.5 Leukorrhea Not Specified As Infective 02/20/2010 EVY PASCUAL DO 623.5 Leukorrhea Not Specified As Infective 02/20/2010 623.5 Leukorrhea Not Specified As Infective 02/20/2010 ELISA ASHLEY APRN N 623.5 Leukorrhea Not Specified As Infective 02/20/2010 EVY PASCUAL DO 623.5 Leukorrhea Not Specified As Infective 02/20/2010 EVY PASCUAL DO 623.5 Leukorrhea Not Specified As Infective 02/20/2010 EVY PASCUAL DO 623.5 Leukorrhea Not Specified As Infective 04/15/2010 112.1 Candidiasis Of Vulva And Vagina 04/15/2010 305.1 NONDEPENDENT TOBACCO USE DISORDER 04/15/2010 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 04/15/2010 112.1 Candidiasis Of Vulva And Vagina 04/15/2010 305.1 NONDEPENDENT TOBACCO USE DISORDER 04/15/2010 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 04/15/2010 EVY PASCUAL DO 112.1 Candidiasis Of Vulva And Vagina 04/15/2010 PASCUAL DO, EVY K 305.1 NONDEPENDENT TOBACCO USE DISORDER 04/15/2010 SAMARA MONTENEGRO EVY K 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 04/15/2010 112.1 Candidiasis Of Vulva And Vagina 04/15/2010 305.1 NONDEPENDENT TOBACCO USE DISORDER 04/15/2010 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 04/15/2010 ELISA ASHLEY APRN N 112.1 Candidiasis Of Vulva And Vagina 04/15/2010 JHONATHAN ASHLEY APRNCY N 305.1 NONDEPENDENT TOBACCO USE DISORDER 04/15/2010 JHONATHAN ASHLEY APRNCY N 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 04/15/2010 PASCUAL DO EVY K 112.1 Candidiasis Of Vulva And Vagina 04/15/2010 SAMARA MONTENEGRO EVY K 305.1 NONDEPENDENT TOBACCO USE DISORDER 04/15/2010 SAMARA MONTENEGRO EVY K 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 04/15/2010 ROSELINE PASCUAL DOA K 112.1 Candidiasis Of Vulva And Vagina 04/15/2010 SAMARA MONTENEGRO EVY K 305.1 NONDEPENDENT TOBACCO USE DISORDER 04/15/2010 ROSELINE PASCUAL DOA K 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 04/15/2010 ROSELINE PASCUAL DOA K 112.1 Candidiasis Of Vulva And Vagina 04/15/2010 SAMARA MONTENEGRO EVY K 305.1 NONDEPENDENT TOBACCO USE DISORDER 04/15/2010 ROSELINE PASCUAL DOA K 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 07/09/2010 719.47 Pain In Joint Involving Ankle And Foot 07/09/2010 719.47 Pain In Joint Involving Ankle And Foot 07/09/2010 ROSELINE PASCUAL DOA Paulette 719.47 Pain In Joint Involving Ankle And Foot 07/09/2010 719.47 Pain In Joint Involving Ankle And Foot 07/09/2010 ELISA ASHLEY APRN N 719.47 Pain In Joint Involving Ankle And Foot 07/09/2010 EVY PASCUAL DO 719.47 Pain In Joint Involving Ankle And Foot 07/09/2010 ROSELINE PASCUAL DOA K 719.47 Pain In Joint Involving Ankle And Foot 07/09/2010 ROSELINE PASCUAL DOA Paulette 719.47 Pain In Joint Involving Ankle And Foot 09/04/2010 110.1 ONYCHOMYCOSIS 09/04/2010 726.79 BURSITIS FOOT 09/04/2010 110.1 ONYCHOMYCOSIS 09/04/2010 726.79 BURSITIS FOOT 09/04/2010 PASCUAL DO, EVY K 110.1 ONYCHOMYCOSIS 09/04/2010 PASCUAL DO, EVY K 726.79 BURSITIS FOOT 09/04/2010 110.1 ONYCHOMYCOSIS 09/04/2010 726.79 BURSITIS FOOT 09/04/2010 ELISA ASHLEY APRN N 110.1 ONYCHOMYCOSIS 09/04/2010 CLINTON XIAO APRN, ELISA N 726.79 BURSITIS FOOT 09/04/2010 PASCUAL DO, EVY K 110.1 ONYCHOMYCOSIS 09/04/2010 PASCUAL DO, EVY K 726.79 BURSITIS FOOT 09/04/2010 PASCUAL DO, EVY K 110.1 ONYCHOMYCOSIS 09/04/2010 PASCUAL DO, EVY K 726.79 BURSITIS FOOT 09/04/2010 PASCUAL DO, EVY K 110.1 ONYCHOMYCOSIS 09/04/2010 PASCUAL DO, EVY K 726.79 BURSITIS FOOT 10/21/2010 V58.69 MEDICATION HIGH RISK 10/21/2010 V58.69 MEDICATION HIGH RISK 10/21/2010 PASCUAL DO, EVY K V58.69 MEDICATION HIGH RISK 10/21/2010 V58.69 MEDICATION HIGH RISK 10/21/2010 CLINTON XIAO APRN, ELISA N V58.69 MEDICATION HIGH RISK 10/21/2010 PASCUAL DO, EVY K V58.69 MEDICATION HIGH RISK 10/21/2010 PASCUAL DO, EVY K V58.69 MEDICATION HIGH RISK 10/21/2010 PASCUAL DO, EVY K V58.69 MEDICATION HIGH RISK 03/08/2011 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 03/08/2011 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 03/08/2011 ROSELINE PASCUAL DOA K 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 03/08/2011 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 03/08/2011 ELISA ASHLEY APRN N 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 03/08/2011 PASCUAL DO EVY K 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 03/08/2011 PASCUAL DO, EVY K 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 03/08/2011 PASCUAL EVY MONTENEGRO K 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 06/17/2011 627.8 OTHER SPECIFIED MENOPAUSAL AND POSTMENOPAUSAL DISORDERS 06/17/2011 627.8 OTHER SPECIFIED MENOPAUSAL AND POSTMENOPAUSAL DISORDERS 06/17/2011 EVY PASCUAL DO K 627.8 OTHER SPECIFIED MENOPAUSAL AND POSTMENOPAUSAL DISORDERS 06/17/2011 627.8 OTHER SPECIFIED MENOPAUSAL AND POSTMENOPAUSAL DISORDERS 06/17/2011 ELISA ASHLEY APRN N 627.8 OTHER SPECIFIED MENOPAUSAL AND POSTMENOPAUSAL DISORDERS 06/17/2011 EVY PASCUAL DO K 627.8 OTHER SPECIFIED MENOPAUSAL AND POSTMENOPAUSAL DISORDERS 06/17/2011 ROSELINE PASCUAL DOA K 627.8 OTHER SPECIFIED MENOPAUSAL AND POSTMENOPAUSAL DISORDERS 06/17/2011 EVY PASCUAL DO K 627.8 OTHER SPECIFIED MENOPAUSAL AND POSTMENOPAUSAL DISORDERS 09/23/2011 780.52 INSOMNIA UNSPECIFIED 09/23/2011 780.52 INSOMNIA UNSPECIFIED 09/23/2011 EVY PASCUAL DO K 780.52 INSOMNIA UNSPECIFIED 09/23/2011 780.52 INSOMNIA UNSPECIFIED 09/23/2011 ELISA ASHLEY APRN N 780.52 INSOMNIA UNSPECIFIED 09/23/2011 EVY PASCUAL DO K 780.52 INSOMNIA UNSPECIFIED 09/23/2011 EVY PASCUAL DO K 780.52 INSOMNIA UNSPECIFIED 09/23/2011 EVY PASCUAL DO K 780.52 INSOMNIA UNSPECIFIED 11/28/2011 Ot 297.9 PARANOID STATE NOS 11/28/2011 Ot 305.1 TOBACCO USE DISORDER 11/28/2011 Ot 780.09 OTHER ALTERATION OF CONSCIOUSNESS 11/28/2011 Ot 969.4 POIS-BENZODIAZEPINE RAE 11/28/2011 Ot 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 12/22/2011 Ot 298.9 PSYCHOSIS NOS 07/07/2012 723.1 CERVICALGIA 07/07/2012 V76.19 OTHER SCREENING BREAST EXAMINATION 07/07/2012 ELISA ASHLEY APRN N 723.1 CERVICALGIA 07/07/2012 ELISA ASHLEY APRN N V76.19 OTHER SCREENING BREAST EXAMINATION 07/07/2012 EVY PASCUAL DO 723.1 CERVICALGIA 07/07/2012 EVY PASCUAL DO V76.19 OTHER SCREENING BREAST EXAMINATION 07/07/2012 PASCUAL DO, EVY K 723.1 CERVICALGIA 07/07/2012 PASCUAL DO, EVY K V76.19 OTHER SCREENING BREAST EXAMINATION 07/07/2012 PASCUAL DO, EVY K 723.1 CERVICALGIA 07/07/2012 PASCUAL DO, EVY K V76.19 OTHER SCREENING BREAST EXAMINATION 10/10/2012 ELISA ASHLEY APRN N 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 10/10/2012 ELISA ASHLEY APRN N 728.85 SPASM OF MUSCLE 10/10/2012 PASCUAL DO, EVY K 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 10/10/2012 PASCUAL DO, EVY K 728.85 SPASM OF MUSCLE 10/10/2012 PASCUAL DO, EVY K 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 10/10/2012 PASCUAL DO, EVY K 728.85 SPASM OF MUSCLE 10/10/2012 PASCUAL DO, EVY K 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 10/10/2012 PASCUAL DO EVY K 728.85 SPASM OF MUSCLE 12/14/2012 PASCUAL DO EVY K 733.92 CHONDROMALACIA 12/14/2012 PASCUAL DO, EVY K 733.92 CHONDROMALACIA 12/14/2012 PASCUAL DO, EVY K 733.92 CHONDROMALACIA 01/28/2014 Ot V76.12 01/28/2014 Ot 719.06 01/28/2014 Ot 727.51 01/28/2014 Ot V76.12 01/28/2014 DIRK LOYA HOTEL DINING ROOM CASHIER Ot 793.82 01/28/2014 DIRK LOYAP Ot V76.12 01/28/2014 DIRK LOYA HOTEL DINING ROOM CASHIER Ot 793.80 01/28/2014 ELISA FRAIRE HOTEL DINING ROOM CASHIER Ot 728.85 01/28/2014 DIRK LOYA HOTEL DINING ROOM CASHIER Ot 793.80 02/04/2014 Ot V76.12 02/04/2014 Ot 719.06 02/04/2014 Ot 727.51 02/04/2014 Ot V76.12 02/04/2014 DIRK LOYA HOTEL DINING ROOM CASHIER Ot 793.82 02/04/2014 DIRK LOYAP Ot V76.12 02/04/2014 DIRK LOYA HOTEL DINING ROOM CASHIER Ot 793.80 02/04/2014 ELISA FRAIRE HOTEL DINING ROOM CASHIER Ot 728.85 02/04/2014 DIRK LOYA HOTEL DINING ROOM CASHIER Ot 793.80 02/05/2014 Ot V76.12 02/05/2014 Ot 719.06 02/05/2014 Ot 727.51 02/05/2014 Ot V76.12 02/05/2014 DIRK LOYA HOTEL DINING ROOM CASHIER Ot 793.82 02/05/2014 DIRK LOYAP Ot V76.12 02/05/2014 DIRK LOYAP Ot 793.80 02/05/2014 ELISA FRAIRE HOTEL DINING ROOM CASHIER Ot 728.85 02/05/2014 DIRK LOYAP Ot 793.80 02/05/2014 DIRK LOYAP Ot 793.80 02/12/2016 Ot V76.12 OTH SCREEN MAMMO-MALIGN NEOPLASM OF JASE 02/12/2016 DIRK LOYA HOTEL DINING ROOM CASHIER Ot 793.82 INCONCLUSIVE MAMMOGRAM 02/12/2016 DIRK LOYA HOTEL DINING ROOM CASHIER Ot V76.12 OTH SCREEN MAMMO-MALIGN NEOPLASM OF JASE 02/12/2016 DIRK LOYA HOTEL DINING ROOM CASHIER Ot 793.80 UNSPEC ABNORMAL MAMMOGRAM 02/12/2016 ELISA FRAIRE HOTEL DINING ROOM CASHIER Ot 728.85 SPASM OF MUSCLE 02/12/2016 DIRK LOYA HOTEL DINING ROOM CASHIER Ot 793.80 UNSPEC ABNORMAL MAMMOGRAM 02/12/2016 DIRK LOYA HOTEL DINING ROOM CASHIER Ot 793.80 UNSPEC ABNORMAL MAMMOGRAM 02/18/2016 Ot V76.12 OTH SCREEN MAMMO-MALIGN NEOPLASM OF JASE 02/18/2016 DIRK LOYA HOTEL DINING ROOM CASHIER Ot 793.82 INCONCLUSIVE MAMMOGRAM 02/18/2016 DIRK LOYA HOTEL DINING ROOM CASHIER Ot V76.12 OTH SCREEN MAMMO-MALIGN NEOPLASM OF JASE 02/18/2016 DIRK LOYA HOTEL DINING ROOM CASHIER Ot 793.80 UNSPEC ABNORMAL MAMMOGRAM 02/18/2016 ELISA FRAIRE HOTEL DINING ROOM CASHIER Ot 728.85 SPASM OF MUSCLE 02/18/2016 DIRK LOYA HOTEL DINING ROOM CASHIER Ot 793.80 UNSPEC ABNORMAL MAMMOGRAM 02/18/2016 DIRK LOYA HOTEL DINING ROOM CASHIER Ot 793.80 UNSPEC ABNORMAL MAMMOGRAM 02/19/2016 Ot V76.12 OTH SCREEN MAMMO-MALIGN NEOPLASM OF JASE 02/19/2016 DIRK LOYA HOTEL DINING ROOM CASHIER Ot 793.82 INCONCLUSIVE MAMMOGRAM 02/19/2016 DIRK LOYA HOTEL DINING ROOM CASHIER Ot V76.12 OTH SCREEN MAMMO-MALIGN NEOPLASM OF JASE 02/19/2016 DIRK LOYA HOTEL DINING ROOM CASHIER Ot 793.80 UNSPEC ABNORMAL MAMMOGRAM 02/19/2016 ELISA FRAIRE N HOTEL DINING ROOM CASHIER Ot 728.85 SPASM OF MUSCLE 02/19/2016 DIRK LOYA HOTEL DINING ROOM CASHIER Ot 793.80 UNSPEC ABNORMAL MAMMOGRAM 02/19/2016 DIRK LOYA HOTEL DINING ROOM CASHIER Ot 793.80 UNSPEC ABNORMAL MAMMOGRAM 02/19/2016 SURAJ DELUNA HOTEL DINING ROOM CASHIER Ot M48.06 SPINAL STENOSIS, LUMBAR REGION 02/19/2016 SURAJ DELUNA HOTEL DINING ROOM CASHIER Ot Z12.31 ENCNTR SCREEN MAMMOGRAM FOR MALIGNANT NE 02/20/2016 DEB DELUNAA HOTEL DINING ROOM CASHIER Ot M48.06 SPINAL STENOSIS, LUMBAR REGION 02/20/2016 Ot V76.12 OTH SCREEN MAMMO-MALIGN NEOPLASM OF JASE 02/20/2016 DIRK LOYA HOTEL DINING ROOM CASHIER Ot 793.82 INCONCLUSIVE MAMMOGRAM 02/20/2016 DIRK LOYA HOTEL DINING ROOM CASHIER Ot V76.12 OTH SCREEN MAMMO-MALIGN NEOPLASM OF JASE 02/20/2016 DIRK LOYA HOTEL DINING ROOM CASHIER Ot 793.80 UNSPEC ABNORMAL MAMMOGRAM 02/20/2016 ELISA FRAIRE HOTEL DINING ROOM CASHIER Ot 728.85 SPASM OF MUSCLE 02/20/2016 DIRK LOYA HOTEL DINING ROOM CASHIER Ot 793.80 UNSPEC ABNORMAL MAMMOGRAM 02/20/2016 DIRK LOYA HOTEL DINING ROOM CASHIER Ot 793.80 UNSPEC ABNORMAL MAMMOGRAM 02/20/2016 SURAJ DELUNA HOTEL DINING ROOM CASHIER Ot M48.06 SPINAL STENOSIS, LUMBAR REGION 02/20/2016 SURAJ DELUNA HOTEL DINING ROOM CASHIER Ot Z12.31 ENCNTR SCREEN MAMMOGRAM FOR MALIGNANT NE 02/20/2016 SURAJ DELUNA HOTEL DINING ROOM CASHIER Ot Z12.31 ENCNTR SCREEN MAMMOGRAM FOR MALIGNANT NE 03/19/2016 Ot V76.12 OTH SCREEN MAMMO-MALIGN NEOPLASM OF JASE 03/19/2016 DIRK LOYA HOTEL DINING ROOM CASHIER Ot 793.82 INCONCLUSIVE MAMMOGRAM 03/19/2016 DIRK LOYA HOTEL DINING ROOM CASHIER Ot V76.12 OTH SCREEN MAMMO-MALIGN NEOPLASM OF JASE 03/19/2016 DIRK LOYA HOTEL DINING ROOM CASHIER Ot 793.80 UNSPEC ABNORMAL MAMMOGRAM 03/19/2016 ELISA FRAIRE HOTEL DINING ROOM CASHIER Ot 728.85 SPASM OF MUSCLE 03/19/2016 DIRK LOYA HOTEL DINING ROOM CASHIER Ot 793.80 UNSPEC ABNORMAL MAMMOGRAM 03/19/2016 DIRK LOYA HOTEL DINING ROOM CASHIER Ot 793.80 UNSPEC ABNORMAL MAMMOGRAM 03/19/2016 SURAJ DELUNAP Ot M54.41 LUMBAGO WITH SCIATICA, RIGHT SIDE 03/19/2016 SURAJ DELUNA HOTEL DINING ROOM CASHIER Ot M48.06 SPINAL STENOSIS, LUMBAR REGION 03/19/2016 SURAJ DELUNAP Ot Z12.31 ENCNTR SCREEN MAMMOGRAM FOR MALIGNANT NE 03/26/2016 PRIYA RAMOS, MOO Martel Ot M43.16 SPONDYLOLISTHESIS, LUMBAR REGION 03/26/2016 MOO POWERS MD Ot M51.16 INTERVERTEBRAL DISC DISORDERS W RADICULO 03/26/2016 PRIYA RAMOS, MOO Martel Ot Z79.899 OTHER SNF (CURRENT) DRUG THERAPY 03/26/2016 Ot V76.12 OTH SCREEN MAMMO-MALIGN NEOPLASM OF JASE 03/26/2016 DIRK LOYA HOTEL DINING ROOM CASHIER Ot 793.82 INCONCLUSIVE MAMMOGRAM 03/26/2016 DIRK LOYA HOTEL DINING ROOM CASHIER Ot V76.12 OTH SCREEN MAMMO-MALIGN NEOPLASM OF JASE 03/26/2016 DIRK LOYA HOTEL DINING ROOM CASHIER Ot 793.80 UNSPEC ABNORMAL MAMMOGRAM 03/26/2016 ELISA FRAIRE HOTEL DINING ROOM CASHIER Ot 728.85 SPASM OF MUSCLE 03/26/2016 DIRK LOYA HOTEL DINING ROOM CASHIER Ot 793.80 UNSPEC ABNORMAL MAMMOGRAM 03/26/2016 DIRK LOYA HOTEL DINING ROOM CASHIER Ot 793.80 UNSPEC ABNORMAL MAMMOGRAM 03/26/2016 REGI SURAJ HOTEL DINING ROOM CASHIER Ot M54.41 LUMBAGO WITH SCIATICA, RIGHT SIDE 03/26/2016 REGI SURAJ HOTEL DINING ROOM CASHIER Ot M48.06 SPINAL STENOSIS, LUMBAR REGION 03/26/2016 REGI SURAJ HOTEL DINING ROOM CASHIER Ot Z12.31 ENCNTR SCREEN MAMMOGRAM FOR MALIGNANT NE 04/08/2016 REGI SURAJ ALATORREP Ot M54.41 LUMBAGO WITH SCIATICA, RIGHT SIDE 04/12/2016 MOO POWERS MD Ot M43.16 SPONDYLOLISTHESIS, LUMBAR REGION 04/12/2016 MOO POWERS MD Ot M51.16 INTERVERTEBRAL DISC DISORDERS W RADICULO 04/12/2016 MOO POWERS MD Ot Z79.899 OTHER CHIEF INNOVATION OFFICER (CURRENT) DRUG THERAPY 04/14/2016 MOO POWERS MD Ot M43.16 SPONDYLOLISTHESIS, LUMBAR REGION 04/14/2016 MOO POWERS MD Ot M51.16 INTERVERTEBRAL DISC DISORDERS W RADICULO 04/14/2016 MOO POWERS MD Ot Z79.899 OTHER CHIEF INNOVATION OFFICER (CURRENT) DRUG THERAPY 05/21/2016 Ot V76.12 OTH SCREEN MAMMO-MALIGN NEOPLASM OF JASE 05/21/2016 DIRK LOYA HOTEL DINING ROOM CASHIER Ot 793.82 INCONCLUSIVE MAMMOGRAM 05/21/2016 DIRK LOYAP Ot V76.12 OTH SCREEN MAMMO-MALIGN NEOPLASM OF JASE 05/21/2016 DIRK LOYA HOTEL DINING ROOM CASHIER Ot 793.80 UNSPEC ABNORMAL MAMMOGRAM 05/21/2016 ELISA FRAIRE HOTEL DINING ROOM CASHIER Ot 728.85 SPASM OF MUSCLE 05/21/2016 DIRK LOYA HOTEL DINING ROOM CASHIER Ot 793.80 UNSPEC ABNORMAL MAMMOGRAM 05/21/2016 DIRK LOYA HOTEL DINING ROOM CASHIER Ot 793.80 UNSPEC ABNORMAL MAMMOGRAM 05/21/2016 SURAJ DELUNA HOTEL DINING ROOM CASHIER Ot M48.06 SPINAL STENOSIS, LUMBAR REGION 05/21/2016 SURAJ DELUNAP Ot Z12.31 ENCNTR SCREEN MAMMOGRAM FOR MALIGNANT NE 05/21/2016 Ot V76.12 OTH SCREEN MAMMO-MALIGN NEOPLASM OF JASE 05/21/2016 DIRK LOYAP Ot 793.82 INCONCLUSIVE MAMMOGRAM 05/21/2016 DIRK LOYAP Ot V76.12 OTH SCREEN MAMMO-MALIGN NEOPLASM OF JASE 05/21/2016 IDRK LOYA HOTEL DINING ROOM CASHIER Ot 793.80 UNSPEC ABNORMAL MAMMOGRAM 05/21/2016 ELISA FRAIRE HOTEL DINING ROOM CASHIER Ot 728.85 SPASM OF MUSCLE 05/21/2016 DIRK LOYA HOTEL DINING ROOM CASHIER Ot 793.80 UNSPEC ABNORMAL MAMMOGRAM 05/21/2016 DIRK LOYA HOTEL DINING ROOM CASHIER Ot 793.80 UNSPEC ABNORMAL MAMMOGRAM 05/21/2016 SURAJ DELUNAP Ot M48.06 SPINAL STENOSIS, LUMBAR REGION 05/21/2016 SURAJ DELUNAP Ot Z12.31 ENCNTR SCREEN MAMMOGRAM FOR MALIGNANT NE 05/21/2016 MOO POWERS MD Ot M43.16 SPONDYLOLISTHESIS, LUMBAR REGION 05/21/2016 MOO POWERS MD Ot M51.16 INTERVERTEBRAL DISC DISORDERS W RADICULO 05/21/2016 MOO POWERS MD Ot Z79.899 OTHER SNF (CURRENT) DRUG THERAPY 06/24/2016 Ot V76.12 06/24/2016 Ot 611.72 06/24/2016 Ot 611.72 06/24/2016 Ot 780.79 06/24/2016 Ot V16.3 06/24/2016 Ot V72.83 06/24/2016 Ot V74.8 06/24/2016 Ot V76.12 06/24/2016 Ot V76.12 OTH SCREEN MAMMO-MALIGN NEOPLASM OF JASE 06/24/2016 Ot 719.06 JOINT EFFUSION-L/LEG 06/24/2016 Ot 727.51 POPLITEAL SYNOVIAL CYST 06/24/2016 Ot V76.12 OTH SCREEN MAMMO-MALIGN NEOPLASM OF JASE 06/24/2016 DIRK LOYA HOTEL DINING ROOM CASHIER Ot 793.82 INCONCLUSIVE MAMMOGRAM 06/24/2016 DIRK LOYA Ot V76.12 OTH SCREEN MAMMO-MALIGN NEOPLASM OF JASE 06/24/2016 DIRK LOYAP Ot 793.80 UNSPEC ABNORMAL MAMMOGRAM 06/24/2016 ELISA FRAIRE HOTEL DINING ROOM CASHIER Ot 728.85 SPASM OF MUSCLE 06/24/2016 DIRK LOYA HOTEL DINING ROOM CASHIER Ot 793.80 UNSPEC ABNORMAL MAMMOGRAM 06/24/2016 DIRK LOYA HOTEL DINING ROOM CASHIER Ot 793.80 UNSPEC ABNORMAL MAMMOGRAM 06/24/2016 SURAJ DELUNA HOTEL DINING ROOM CASHIER Ot M48.06 SPINAL STENOSIS, LUMBAR REGION 06/24/2016 SURAJ DELUNA Ot Z12.31 ENCNTR SCREEN MAMMOGRAM FOR MALIGNANT NE Procedures Code Description Performed By Performed On NARDA BAIRD 03/12 61247 ROUTINE VENIPUNCTURE 03/14/2012 91979 URIC ACID 2012 01929 MAMMOGRAM, SCREENING 07/09/2012 39025 MAMMOGRAM DX, LEFT 07/11/2012 22601 US BREAST ULTRASOUND, LEFT 08/02/2012 84838 CULTURE STOOL 10/2012 84229 STOOL FOR O & P 12/12/2012 82238 CLOSTRIDIUM (C-DIFF) 12/13/201240617 JOINT INJECTION- LARGE JOINT (SPECIFY MEDCIN DESCRIPTION) 12/14/201220856 JOINT INJECTION- LARGE JOINT (SPECIFY MEDCIN DESCRIPTION) 03/15/2013 01404 XRAY KNEE RIGHT 1 OR 2 VIEWS 03/15/2013 JOINT INJECTION- LARGE JOINT (SPECIFY MEDCIN DESCRIPTION) 06/04/2013 Results Encounters ACCT No. Visit Date/Time Discharge Status Pt. Type Provider Facility Loc./Unit Complaint [id number] 06/04/2013 14:50:00 06/04/2013 23: 59:59 CLS Outpatient EVY PASCUAL DO [id number] 03/15/2013 12:26:00 03/15/2013 23: 59:59 CLS Outpatient EVY PASCUAL DO [id number] 12/14/2012 12:31:00 12/14/2012 23: 59:59 CLS Outpatient EVY PASCUAL DO [id number] 12/12/2012 10:59:00 12/12/2012 23: 59:59 CLS Outpatient ELISA ASHLEY APRN [id number] 03/14/2012 15:09:00 03/14/2012 23: 59:59 CLS Outpatient EVY PASCUAL DO [id number] 03/10/2012 16:15:00 03/10/2012 23: 59:59 CLS Outpatient [id number] 01/07/2012 09:38:00 01/07/2012 23:59 :59 CLS Outpatient [id number] 07/07/2012 16:18:00 Document Registration [id number] 05/21/2016 07:54:00 2016 08:54:00 DIS Outpatient MOO POWERS MD [facility] CARD DISC DISORDER [id number] 03/17/2016 10:30:00 2016 14:50:00 DIS Outpatient SURAJ DELUNA HOTEL DINING ROOM CASHIER [facility] REHAB BACK PAIN WITH SCIATICA [id number] 03/26/2016 09:25:00 2016 10:02:00 DIS Outpatient MOO POWERS MD [facility] CARD DISC DISORDER [id number] 02/19/2016 11:44:00 2015 23:59:59 CLS Outpatient SURAJ DELUNA HOTEL DINING ROOM CASHIER [facility] RAD SCREENING [id number] 02/19/2016 11:37:00 2015 23:59:59 CLS Outpatient SURAJ DELUNA HOTEL DINING ROOM CASHIER [facility] RAD LUMBAGO [id number] 02/04/2014 07:39:00 2013 23:59:59 CLS Outpatient DIRK LOYA HOTEL DINING ROOM CASHIER [facility] RAD FOLLOW UP L BREAST/ABN EVAL L BREAST [id number] 01/30/2013 07:46:00 2012 23:59:59 CLS Outpatient DIRK LOYA HOTEL DINING ROOM CASHIER [facility] RAD 6 MONTH FOLLOW UP [id number] 10/12/2012 08:06:00 2012 23:59:59 CLS Outpatient ELISA FRAIRE HOTEL DINING ROOM CASHIER [facility] RAD NECK SPASMS [id number] 07/26/2012 14:20:00 2012 23:59:59 CLS Outpatient DIRK LOYA HOTEL DINING ROOM CASHIER [facility] RAD ABN MAMMOGRAM [id number] 07/13/2012 10:49:00 2012 23:59:59 CLS Outpatient DIRK LOYA [facility] RAD SCREENING [id number] 06/24/2016 16:47:00 Document Registration [id number] 06/24/2016 16:47:00 Document Registration [id number] 06/24/2016 16:47:00 Document Registration [id number] 12/22/2011 07:40:00 Document Registration [id number] 11/28/2011 15:45:00 Document Registration [id number] 06/17/2011 09:39:00 Document Registration [id number] 03/10/2010 12:12:00 Document Registration [id number] 11/24/2009 09:11:00 Document Registration [id number] 07/01/2008 16:18:00 Document Registration [id number] 10/03/2007 11:40:00 Document Registration [id number] 07/12/2007 13:27:00 Document Registration [id number] 06/20/2007 10:17:00 Document Registration
[2016-12-22] MEDS ORDERED: NS IV 1000 ML 1,000 ML IV ONE (16:55)
[2016-12-22] MEDS ORDERED: FAMOTIDINE 20MG/2ML IV (PEPCID) IV STA (17:06)
--- NOTE | 2016-12-22 17:16 | ED GI ---
General Chief Complaint: Abdominal/GI Problems Stated Complaint: VOMITING W TRACES OF BLOOD Nursing Triage Note: PT REPORTS THAT SHE HAS BEEN VOMITING X 1 MONTH. SHE HAS BEEN SEEN AND TX BY HER PCP AND HAD CT SCAN OF HER ABDOMEN YESTERDAY. SHE STATES SHE HAS BEEN TAKING ZOFRAN. SHE STATES TODAY WHEN SHE VOMITED THE LAST TIME IT WAS BLOOD TINGED. Sepsis Screen: No Definite Risk Source of Information: Patient Exam Limitations: No Limitations (JESI GOMEZ MD) History of Present Illness Time Seen By Provider: 17:00 Initial Comments Here with report of vomiting times a month. States that she's been evaluated by her doctor and had a CT scan last week. She said this was of her abdomen but appears to be of her head. The CT of the head was normal per report. States that she vomited several times today and reports that there may have been a little blood in the last episode of vomiting. She was given prescription of ondansetron 8 mg and last dose at 1230. She states this is not helping her nausea and vomiting. She still feels like she needs to vomit now but has not vomited here. Denies fever or chills. Denies breathing problems. On entrance into the room, patient was lying down on the bed with her feet up on the elevated head of the bed. Was able to move around and transition to normal lying position without difficulty when asked. Timing/Duration: 1 Week, Constant Severity/Quality: Moderate, Other (nausea) Location: Generalized Abdomen Radiation: No Radiation Activities at Onset: None Modifying Factors: Worsens With Eating Associated Symptoms: Back Pain (chronic), No Chest Pain, No Fever/Chills, Nausea/Vomiting, No Shortness of Air, No Swelling/Mass in Abdomen, No Weakness ( JESI GOMEZ MD) Allergies and Home Medications Allergies Coded Allergies: No Allergy Information Available (Unverified , 11/28/11) Home Medications Citalopram Hydrobromide 10 Mg Tablet, 40 MG PO DAILY, (Reported) Omeprazole 20 Mg Tablet., 20 MG PO DAILY, #30 Prescribed by: JONN COLON on 12/22/161922 Sulfamethoxazole/Trimethoprim 1 Each Tablet, 1 EACH PO BID, #14 Prescribed by: JONN COLON on 12/22/161922 Trazodone Hcl 150 Mg Tablet, 150 MG PO HS, (Reported) Review of Systems Constitutional: see HPI, No chills, No fever EENTM: No Symptoms Reported Respiratory: No Symptoms Reported Cardiovascular: No Symptoms Reported, Denies Chest Pain, Denies Edema Gastrointestinal: Abdominal Pain (epigastric and generalized nausea), Denies Diarrhea, Nausea, Vomiting Genitourinary: No Symptoms Reported Musculoskeletal: back pain (chronic), No neck pain Skin: no symptoms reported Psychiatric/Neurological: No Symptoms Reported (JESI GOMEZ MD) All Other Systems Reviewed Negative Unless Noted: Yes (JESI GOMEZ MD) Past Lrkotpl-Httnnu-Suqtyd Hx Patient Social History Alcohol Use: Occasionally Uses Recreational Drug Use: Yes Smoking Status: Current Everyday Smoker Type Used: Cigarettes 2nd Hand Smoke Exposure: Yes Recent Foreign Travel: No Contact w/Someone Who Travel: No Recent Infectious Disease Expo: No Recent Hopitalizations: No Physical Abuse: No Sexual Abuse: No (JESI GOMEZ MD) Seasonal Allergies Seasonal Allergies: No (JESI GOMEZ MD) Surgeries History of Surgeries: Yes Surgeries: Orthopedic (JESI GOMEZ MD) Respiratory History of Respiratory Disorde: No (JESI GOMEZ MD) Cardiovascular History of Cardiac Disorders: No (JESI GOMEZ MD) Neurological History of Neurological Disord: No (JESI GOMEZ MD) Reproductive System Hx Reproductive Disorders: No (JESI GOMEZ MD) Gastrointestinal History of Gastrointestinal Di: No (JESI GOMEZ MD) Endocrine History of Endocrine Disorders: No (JESI GOMEZ MD) Psychosocial History of Psychiatric Problem: Yes Suicide Risk Score: 0 (JESI GOMEZ MD) Blood Transfusions History of Blood Disorders: No (JESI GOMEZ MD) Reviewed Nursing Assessment Reviewed/Agree w Nursing PMH: Yes (JESI GOMEZ MD) Family Medical History Significant Family History: No Pertinent Family Hx (JESI GOMEZ MD) Physical Exam Vital Signs VS - Last 72 Hours, by Label 12/22/16 16:42 Temp 98.1 Pulse 72 Resp 18 B/P (MAP) 135/84 Pulse Ox 99 O2 Delivery Room Air (JONN DONIS MD) Vital Signs Capillary Refill : Less Than 3 Seconds (JESI GOMEZ MD) General Appearance: WD/WN, no apparent distress HEENT: PERRL/EOMI, pharynx normal Neck: full range of motion, supple Respiratory: lungs clear, normal breath sounds Cardiovascular: regular rate, rhythm, no murmur Peripheral Pulses: 2+ Dorsalis Pedis (R), 2+ Left Dors-Pedis (L), 2+ Radial Pulses (R), 2+ Radial Pulses (L) Gastrointestinal: non tender, soft Extremities: non-tender, normal inspection Back: normal inspection, no CVA tenderness, no vertebral tenderness Neurologic/Psychiatric: alert, oriented x 3 Skin: normal color, warm/dry (JESI GOMEZ MD) Progress/Results/Core Measures Results/Orders Lab Results Laboratory Tests Test 12/22/16 17:25 12/22/16 18:27 Range/Units White Blood Count 9.0 4.3-11.0 10^3/uL Red Blood Count 4.31 L 4.35-5.85 10^6/uL Hemoglobin 12.8 11.5-16.0 G/DL Hematocrit 39 35-52 % Mean Corpuscular Volume 91 80-99 FL Mean Corpuscular Hemoglobin 30 25-34 PG Mean Corpuscular Hemoglobin Concent 33 32-36 G/DL Red Cell Distribution Width 13.4 10.0-14.5 % Platelet Count 357 130-400 10^3/uL Mean Platelet Volume 9.7 7.4-10.4 FL Neutrophils (%) (Auto) 86 H 42-75 % Lymphocytes (%) (Auto) 12 12-44 % Monocytes (%) (Auto) 2 0-12 % Eosinophils (%) (Auto) 0 0-10 % Basophils (%) (Auto) 0 0-10 % Neutrophils # (Auto) 7.8 1.8-7.8 X 10^3 Lymphocytes # (Auto) 1.1 1.0-4.0 X 10^3 Monocytes # (Auto) 0.2 0.0-1.0 X 10^3 Eosinophils # (Auto) 0.0 0.0-0.3 10^3/uL Basophils # (Auto) 0.0 0.0-0.1 10^3/uL Sodium Level 141 135-145 MMOL/L Potassium Level 4.3 3.6-5.0 MMOL/L Chloride Level 105 98-107 MMOL/L Carbon Dioxide Level 24 21-32 MMOL/L Anion Gap 12 5-14 MMOL/L Blood Urea Nitrogen 12 7-18 MG/DL Creatinine 0.79 0.60-1.30 MG/DL Estimat Glomerular Filtration Rate > 60 BUN/Creatinine Ratio 15 Glucose Level 143 H 70-105 MG/DL Calcium Level 10.0 8.5-10.1 MG/DL Magnesium Level 2.5 H 1.8-2.4 MG/DL Total Bilirubin 0.5 0.1-1.0 MG/DL Aspartate Amino Transf (AST/SGOT) 19 5-34 U/L Alanine Aminotransferase (ALT/SGPT) 13 0-55 U/L Alkaline Phosphatase 66 40-136 U/L Total Protein 8.5 H 6.4-8.2 GM/DL Albumin 4.5 3.2-4.5 GM/DL Lipase 22 8-78 U/L Urine Color YELLOW Urine Clarity CLEAR Urine pH 7 5-9 Urine Specific [place] 1.005 L 1.016-1.022 Urine Protein NEGATIVE NEGATIVE Urine Glucose (UA) NEGATIVE NEGATIVE Urine Ketones NEGATIVE NEGATIVE Urine Nitrite NEGATIVE NEGATIVE Urine Bilirubin NEGATIVE NEGATIVE Urine Urobilinogen NORMAL NORMAL MG/DL Urine Leukocyte Esterase 2+ H NEGATIVE Urine RBC (Auto) NEGATIVE NEGATIVE Urine RBC 0-2 /HPF Urine WBC 5-10 H /HPF Urine Squamous Epithelial Cells 10-25 H /HPF Urine Crystals NONE /LPF Urine Bacteria TRACE /HPF Urine Casts NONE /LPF Urine Mucus NEGATIVE /LPF Urine Culture Indicated YES (JONN DONIS MD) My Orders Orders - JONN DONIS MD Pantoprazole Tablet (Protonix Tablet) (12/22/16 19:30) Ondansetron Injection (Zofran Injectio (12/22/16 19:30) Rx-Promethazine Hcl (Rx-Phenergan Supp) (12/22/16 19:18) Sulfamethoxazole/Trimet Ds Tab (Bactrim (12/22/16 19:30) (JONN DONIS MD) Medications Given in ED Current Medications Medications Dose Ordered Sig/Stephie Route Start Time Stop Time Status Last Admin Dose Admin Sodium Chloride 1,000 ml @ 0 mls/hr Q0M ONCE IV 12/22/16 16:55 12/22/16 16:57 DC 12/22/16 17:24 0 MLS/HR (JONN DONIS MD) Vital Signs/I&O Vital Sign - Last 12Hours 12/22/16 16:42 Temp 98.1 Pulse 72 Resp 18 B/P (MAP) 135/84 Pulse Ox 99 O2 Delivery Room Air Intake and Output 12/23/16 00:00 Intake Total 1000 ml Balance 1000 ml (JONN DONIS MD) Blood Pressure Mean: 101 Progress Note : Progress Note Seen and evaluated. IV, labs, UA, normal saline 1 L bolus and Pepcid 20 mg IV ordered. Monitor patient. I did review head CT results from last week. (JESI GOMEZ MD) Progress Note : Time: 19:24 Progress Note Care of this patient was assumed from Dr. Gomez at shift change at 18:00. Labs and UA were assessed. Patient was found to have suggestion of urinary tract infection. I suggested treatment with Bactrim due to low cost. She received a dose of IV Zofran followed by the first dose of Bactrim. She also received oral Protonix. A take-home packet of promethazine was given for backup nausea treatment. Follow-up instructions were reviewed. Patient states she has a place to stay tonight but does not have a permanent residence. She believes she will be able to afford the Bactrim prescription. (JONN DONIS MD) Departure Impression Impression: Primary Impression: Nausea and vomiting Qualified Codes: R11.2 - Nausea with vomiting, unspecified Additional Impression: Urinary tract infection Qualified Codes: N39.0 - Urinary tract infection, site not specified Disposition: 01 HOME, SELF-CARE Condition: Improved Departure-Patient Inst. Decision time for Depature: 19:20 (JONN DONIS MD) Referrals: [facility] (PCP/Family) Primary Care Physician Patient Instructions: Nausea and Vomiting, Adult, Urinary Tract Infection, Adult (DC) Add. Discharge Instructions: Drink plenty of clear liquids. Complete your antibiotic as prescribed. Follow- up at [facility] as soon as possible to review urine culture and for further evaluation of your nausea and vomiting. If nausea and vomiting persist after treatment, consider other studies such as testing for H. pylori, gallbladder ultrasound, and endoscopy. Please discuss this with your primary care provider. Return to emergency room if symptoms worsen. You may continue using Zofran (ondansetron) as previously prescribed. Use the Phenergan (promethazine ) for nausea not controlled by Zofran. All discharge instructions reviewed with patient and/or family. Voiced understanding. Scripts Sulfamethoxazole/Trimethoprim (Bactrim Ds Tablet) 1 Each Tablet 1 EACH PO BID, #14 TAB Prov: JONN DONIS MD 12/22/16 Omeprazole (Omeprazole) 20 Mg Tablet.dr 20 MG PO DAILY, #30 TAB Prov: JONN DONIS MD 12/22/16 Copy Copies To 1: TAMMI MINER TIMOTHY D MD Dec 22, 2016 17:16 JONN DONIS MD Dec 22, 2016 19:25
[2016-12-22 17:36] LABS: BASOPHILS % (AUTO) 0 % (0-10); EOSINOPHILS % (AUTO) 0 % (0-10); LYMPHOCYTES # (AUTO) 1.1 X 10^3 (1.0-4.0); LYMPHOCYTES % (AUTO) 12 % (12-44); MEAN CORPUSCULAR HEMOGLOBIN 30 PG (25-34); MEAN CORPUSCULAR HGB CONC 33 G/DL (32-36); MEAN CORPUSCULAR VOLUME 91 FL (80-99); MEAN PLATELET VOLUME 9.7 FL (7.4-10.4); MONOCYTES # (AUTO) 0.2 X 10^3 (0.0-1.0); MONOCYTES % (AUTO) 2 % (0-12); NEUTROPHILS # (AUTO) 7.8 X 10^3 (1.8-7.8); NEUTROPHILS % (AUTO) 86 % (42-75); PLATELET COUNT 357 10^3/uL (130-400); RED BLOOD COUNT 4.31 10^6/uL (4.35-5.85); RED CELL DISTRIBUTION WIDTH 13.4 % (10.0-14.5)
[2016-12-22 17:57] LABS: ALANINE AMINOTRANSFERASE 13 U/L (0-55); ALBUMIN 4.5 GM/DL (3.2-4.5); ANION GAP 12 MMOL/L (5-14); ASPARTATE AMINO TRANSFERASE 19 U/L (5-34); BILIRUBIN,TOTAL 0.5 MG/DL (0.1-1.0); BLOOD UREA NITROGEN 12 MG/DL (7-18); BUN/CREATININE RATIO 15; CARBON DIOXIDE 24 MMOL/L (21-32); CHLORIDE 105 MMOL/L (98-107); CREATININE SERUM 0.79 MG/DL (0.60-1.30); GFR ESTIMATED > 60; GLUCOSE 143 MG/DL (70-105); LIPASE 22 U/L (8-78); MAGNESIUM 2.5 MG/DL (1.8-2.4); POTASSIUM 4.3 MMOL/L (3.6-5.0); SODIUM 141 MMOL/L (135-145); TOTAL PROTEIN 8.5 GM/DL (6.4-8.2)
[2016-12-22 18:40] LABS: BILIRUBIN,URINE NEGATIVE (NEGATIVE); KETONES,URINE NEGATIVE (NEGATIVE); LEUKOCYTE ESTERASE ,URINE 2+ (NEGATIVE); NITRITE,URINE NEGATIVE (NEGATIVE); PH,URINE 7 (5-9); PROTEIN,URINE NEGATIVE (NEGATIVE); UROBILINOGEN,URINE NORMAL (NORMAL)
[2016-12-22] MEDS ORDERED: RX-PHENERGAN 25 MG SUPP PPK#3 PR STA (19:18)
[2016-12-22] MEDS ORDERED: OMEP20TA7 PO (19:23)
[2016-12-22] MEDS ORDERED: SULF1TAB35 PO (19:23)
[2016-12-22] MEDS ORDERED: ONDANSETRON 4 MG/2 ML (SDV) Z0FRAN IVP ONE (19:30)
[2016-12-22] MEDS ORDERED: PANTOPRAZOLE 40 MG (PROTONIX) TAB PO ONE (19:30)
[2016-12-22] MEDS ORDERED: TRIM/SULFAMETH 160/800 (SEPTRA DS) TAB PO ONE (19:30)
[2016-12-22 19:50] VITALS: BP 135/84
== END 2016-12-22 19:50 | disposition home or self-care (01) ==
LOC: EDUNIT# 16:14 → ER 16:16
DX: N39.0 Urinary tract infection, site not specified (principal); F17.210 Nicotine dependence, cigarettes, uncomplicated
CPT/HCPCS: 36415; 80053; 81000; 83690; 83735; 85025; 87088; 96361; 96374; 96375

== ENCOUNTER 2018-03-05 12:56 | Emergency (ER) | payer SELFPAY ==
[~2018-03-05] VITALS: Ht 162.6 cm; Wt 65.8 kg
[~2018-03-05 12:56] MED LIST changes: +OMEP20TA7 PO; +SULF1TAB35 PO
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
--- OUTSIDE RECORDS SUMMARY | 2018-03-05 13:05 | XMS REPORT | Continuity of Care Document ---
Author Author Formerly [facility] Address Unknown Phone Unavailable Allergies Active Description Code Type Severity Reaction Onset Reported/Identified Relationship to Patient Clinical Status Yes Methotrexate Drug Allergy 07/14/2010 Yes Methotrexate Drug Allergy N/ A N/A 07/14/2010 Yes No Allergy Information Available [id number] Drug Allergy Unknown N/A 2011 Medications There is no data. Problems Date Dx Coded Attending Type Code Diagnosis Diagnosed By 02/03/1449 SURAJ DELUNA Ot M54.41 LUMBAGO WITH SCIATICA, RIGHT SIDE 09/12/2007 296.90 MOOD DISORDER 09/12/2007 401.1 HYPERTENSION, BENIGN ESSENTIAL 09/12/2007 466.0 Bronchitis, Acute 09/12/2007 296.90 MOOD DISORDER 09/12/2007 401.1 HYPERTENSION, BENIGN ESSENTIAL 09/12/2007 466.0 Bronchitis, Acute 09/12/2007 PASCUAL DO, EVY K 296.90 MOOD DISORDER 09/12/2007 SAMARA MONTENEGRO EVY K 401.1 HYPERTENSION, BENIGN ESSENTIAL 09/12/2007 PASCUAL DO EVY K 466.0 Bronchitis, Acute 09/12/2007 296.90 MOOD DISORDER 09/12/2007 401.1 HYPERTENSION, BENIGN ESSENTIAL 09/12/2007 466.0 Bronchitis, Acute 09/12/2007 ALONZOYAMINI XIAO APRN ELISA N 296.90 MOOD DISORDER 09/12/2007 ALONZO CASHERO INVESTIGATIONS CONSULTANT, ELISA N 401.1 HYPERTENSION, BENIGN ESSENTIAL 09/12/2007 ALONZO CASHERO INVESTIGATIONS CONSULTANT, ELISA N 466.0 Bronchitis, Acute 09/12/2007 PASCUAL DO EVY K 296.90 MOOD DISORDER 09/12/2007 PASCUAL DO EVY K 401.1 HYPERTENSION, BENIGN ESSENTIAL 09/12/2007 PASCUAL DO EVY K 466.0 Bronchitis, Acute 09/12/2007 PASCUAL DO EVY K 296.90 MOOD DISORDER 09/12/2007 PASCUAL DO EVY K 401.1 HYPERTENSION, BENIGN ESSENTIAL 09/12/2007 PASCUAL DO EVY K 466.0 Bronchitis, Acute 09/12/2007 PASCUAL [...] UNSPECIFIED 09/28/2007 V25.40 CONTRACEPTIVE SURVEILLANCE UNSPECIFIED 09/28/2007 SAMARA MONTENEGRO EVY K V25.40 CONTRACEPTIVE SURVEILLANCE UNSPECIFIED 09/28/2007 V25.40 CONTRACEPTIVE SURVEILLANCE UNSPECIFIED 09/28/2007 ELISA ASHLEY APRN N V25.40 CONTRACEPTIVE SURVEILLANCE UNSPECIFIED 09/28/2007 PASCUAL DO EVY K V25.40 CONTRACEPTIVE SURVEILLANCE UNSPECIFIED 09/28/2007 PASCUAL DO EVY K V25.40 CONTRACEPTIVE SURVEILLANCE UNSPECIFIED 09/28/2007 PASCUAL DO EVY K V25.40 CONTRACEPTIVE SURVEILLANCE UNSPECIFIED 12/14/2007 V25.49 SURVEILLANCE OF OTHER CONTRACEPTIVE METHOD 12/14/2007 V25.49 SURVEILLANCE OF OTHER CONTRACEPTIVE METHOD 12/14/2007 SAMARA MONTENEGRO EVY K V25.49 SURVEILLANCE OF OTHER CONTRACEPTIVE METHOD 12/14/2007 V25.49 SURVEILLANCE OF OTHER CONTRACEPTIVE METHOD 12/14/2007 JHONATHAN ASHLEY APRNCY N V25.49 SURVEILLANCE OF OTHER CONTRACEPTIVE METHOD [...] Pharyngitis 06/21/2008 787.91 Diarrhea 06/21/2008 ALONZO CASHERO INVESTIGATIONS CONSULTANT, ELISA N 381.4 Otitis Media Nonsuppurative Both Ears 06/21/2008 ALONZO CASHERO INVESTIGATIONS CONSULTANT, ELISA N 462 Acute Pharyngitis 06/21/2008 ALONZO CASHERO INVESTIGATIONS CONSULTANT, ELISA N 787.91 Diarrhea 06/21/2008 PASCUAL DO, EVY K [...] MENOPAUSAL AND POSTMENOPAUSAL DISORDER UNSPECIFIED 01/03/2009 PASCUAL ROSELINE MONTENEGROA K 719.08 EFFUSION OF JOINT, OTHER SPECIFIED [...] OTHER SPECIFIED SITES 01/07/2009 719.46 PAIN IN JOINT , LOWER LEG 01/07/2009 719.46 PAIN IN JOINT , LOWER LEG 01/07/2009 PASCUAL DO, EVY K 719.46 PAIN IN JOINT, LOWER LEG 01/07/2009 719.46 PAIN IN JOINT , LOWER LEG 01/07/2009 ALONZO CHRISTINEDARREN INVESTIGATIONS CONSULTANT, ELISA N 719.46 PAIN IN JOINT, LOWER LEG 01/07/2009 PASCUAL DO, EVY K 719.46 PAIN IN JOINT, LOWER LEG 01/07/2009 PASCUAL DO, EVY K 719.46 PAIN IN JOINT, LOWER LEG 01/07/2009 PASCUAL DO, EVY K 719.46 PAIN IN JOINT, LOWER LEG 01/24/2009 715.96 OSTEOARTHRITIS KNEE 01/24/2009 715.96 OSTEOARTHRITIS KNEE 01/24/2009 PASCUAL DO, EVY K 715.96 OSTEOARTHRITIS KNEE 01/24/2009 715.96 OSTEOARTHRITIS KNEE 01/24/2009 CLINTON KINGDARREN INVESTIGATIONS CONSULTANT, ELISA N 715.96 OSTEOARTHRITIS KNEE 01/24/2009 PASCUAL [...] OF EUSTACHIAN TUBE 04/08/2009 719.49 PAIN IN JOINT , MULTIPLE SITES 04/08/2009 780.79 OTHER MALAISE AND FATIGUE 04/08/2009 783.1 ABNORMAL WEIGHT GAIN 04/08/2009 E987.9 Falling From Unspecified Site, Undetermined Whether Accidentally Or Purposely Inflicted 04/08/2009 381.81 DYSFUNCTION OF EUSTACHIAN TUBE 04/08/2009 719.49 PAIN IN JOINT , MULTIPLE SITES 04/08/2009 780.79 OTHER MALAISE AND [...] OF EUSTACHIAN TUBE 04/08/2009 719.49 PAIN IN JOINT , MULTIPLE SITES 04/08/2009 780.79 OTHER MALAISE AND FATIGUE 04/08/2009 783.1 ABNORMAL WEIGHT GAIN 04/08/2009 E987.9 Falling From Unspecified Site, Undetermined Whether Accidentally Or Purposely Inflicted 04/08/2009 ELISA ASHLEY APRN N 381.81 DYSFUNCTION OF EUSTACHIAN TUBE 04/08/2009 CLINTON XIAO APRN, ELISA N 719.49 PAIN IN JOINT, MULTIPLE SITES 04/08/2009 CLINTON XIAO APRN, ELISA N 780.79 OTHER MALAISE AND FATIGUE 04/08/2009 CLINTON XIAO APRN, ELISA N 783.1 ABNORMAL WEIGHT GAIN 04/08/2009 CLINTON XIAO APRN, ELISA N E987.9 Falling From Unspecified Site, Undetermined [...] LIMB 07/08/2009 729.5 PAIN IN LIMB 07/08/2009 ELISA ASHLEY APRN N 729.5 PAIN IN LIMB 07/08/2009 PASCUAL DO, EVY K 729.5 PAIN IN LIMB 07/08/2009 PASCUAL DO, EVY K 729.5 PAIN IN LIMB 07/08/2009 PASCUAL DO, EVY K 729.5 PAIN IN LIMB 08/05/2009 053.9 HERPES ZOSTER , WITHOUT MENTION OF COMPLICATION 08/05/2009 692.9 Contact Dermatitis And Other Eczema, Unspecified Cause 08/05/2009 053.9 HERPES ZOSTER , WITHOUT MENTION OF COMPLICATION 08/05/2009 692.9 Contact Dermatitis And Other Eczema, Unspecified Cause 08/05/2009 PASCUAL DO, EVY K 053.9 HERPES ZOSTER, WITHOUT MENTION OF COMPLICATION 08/05/2009 PASCUAL DO, EVY K 692.9 Contact Dermatitis And Other Eczema, Unspecified Cause 08/05/2009 053.9 HERPES ZOSTER , WITHOUT MENTION OF COMPLICATION 08/05/2009 692.9 Contact Dermatitis And Other Eczema, Unspecified Cause 08/05/2009 ELISA ASHLEY APRN N 053.9 HERPES ZOSTER, WITHOUT MENTION OF COMPLICATION 08/05/2009 ELISA ASHLEY APRN N 692.9 Contact Dermatitis And [...] Other Eczema, Unspecified Cause 08/09/2009 053.9 HERPES ZOSTER , WITHOUT MENTION OF COMPLICATION 08/09/2009 300.00 ANXIETY UNSPEC 08/09/2009 698.9 Pruritus Nos 08/09/2009 053.9 HERPES ZOSTER , WITHOUT MENTION OF COMPLICATION 08/09/2009 300.00 ANXIETY UNSPEC 08/09/2009 698.9 Pruritus Nos 08/09/2009 PASCUAL DO, EVY K 053.9 HERPES ZOSTER, WITHOUT MENTION OF COMPLICATION 08/09/2009 PASCUAL DO, EVY K 300.00 ANXIETY UNSPEC 08/09/2009 PASCUAL DO, EVY K 698.9 Pruritus Nos 08/09/2009 053.9 HERPES ZOSTER , WITHOUT MENTION OF COMPLICATION 08/09/2009 300.00 ANXIETY UNSPEC 08/09/2009 698.9 Pruritus Nos 08/09/2009 ALONZO CASHERO INVESTIGATIONS CONSULTANT, ELISA N 053.9 HERPES ZOSTER, WITHOUT MENTION OF COMPLICATION 08/09/2009 ALONZO CASHERO INVESTIGATIONS CONSULTANT, ELISA N 300.00 ANXIETY UNSPEC 08/09/2009 ALONZO CASHERO INVESTIGATIONS CONSULTANT, ELISA N 698.9 Pruritus Nos 08/09/2009 PASCUAL [...] HERPES ZOSTER, WITHOUT MENTION OF COMPLICATION 08/09/2009 PSACUAL DO, EVY K 300.00 ANXIETY UNSPEC 08/09/2009 [...] 08/19/2009 788.63 Urinary Urgency 08/19/2009 ALONZO CASHERO INVESTIGATIONS CONSULTANT, ELISA N 724.5 BACKACHE UNSPECIFIED 08/19/2009 ALONZO CASHERO INVESTIGATIONS CONSULTANT, ELISA N 788.1 Dysuria 08/19/2009 ALONZO CASHERO INVESTIGATIONS CONSULTANT, ELISA N 788.63 Urinary Urgency 08/19/2009 PASCUAL [...] Issue Of Repeat Prescriptions 11/12/2009 ALONZO CASHERO INVESTIGATIONS CONSULTANT, ELISA N 054.10 HERPES SIMPLEX GENITAL 11/12/2009 ALONZO CASHERO INVESTIGATIONS CONSULTANT, ELISA N 922.1 Contusion Of Trunk, Chest Wall 11/12/2009 ALONZO CASHDARREN INVESTIGATIONS CONSULTANT ELISA N V68.1 Issue Of Repeat Prescriptions [...] 112.1 Candidiasis Of Vulva And Vagina 04/15/2010 ROSELINE PASCUAL DOA K 305.1 NONDEPENDENT TOBACCO USE DISORDER 04/15/2010 ROSELINE PASCUAL DOA K 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 04/15/2010 112.1 Candidiasis Of Vulva And Vagina 04/15/2010 305.1 NONDEPENDENT TOBACCO USE DISORDER 04/15/2010 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 04/15/2010 EVY PASCUAL DO K 112.1 Candidiasis Of Vulva And Vagina 04/15/2010 ROSELINE PASCUAL DOA K 305.1 NONDEPENDENT TOBACCO USE DISORDER 04/15/2010 [...] ELISA ASHLEY APRN N 110.1 ONYCHOMYCOSIS 09/04/2010 JHONATHAN ASHLEY APRNCY N 726.79 BURSITIS FOOT 09/04/2010 PASCUAL DO, [...] RISK 10/21/2010 V58.69 MEDICATION HIGH RISK 10/21/2010 JHONATHAN ASHLEY APRNCY N V58.69 MEDICATION HIGH RISK 10/21/2010 PASCUAL DO, EVY K V58.69 MEDICATION HIGH RISK 10/21/2010 PASCUAL DO, EVY K V58.69 MEDICATION HIGH RISK 10/21/2010 PASCUAL DO, EVY K V58.69 MEDICATION HIGH RISK 03/08/2011 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 03/08/2011 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 03/08/2011 SAMARA DOROSELINEA K 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 03/08/2011 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 03/08/2011 ELISA ASHLEY APRN N 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 03/08/2011 PASCUAL DO EVY K 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 03/08/2011 EVY PASCUAL DO 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 03/08/2011 EVY PASCUAL DO 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 06/17/2011 627.8 OTHER SPECIFIED MENOPAUSAL AND POSTMENOPAUSAL DISORDERS 06/17/2011 627.8 OTHER SPECIFIED MENOPAUSAL AND POSTMENOPAUSAL DISORDERS 06/17/2011 EVY PASCUAL DO 627.8 OTHER SPECIFIED MENOPAUSAL AND POSTMENOPAUSAL DISORDERS 06/17/2011 627.8 OTHER SPECIFIED MENOPAUSAL AND POSTMENOPAUSAL DISORDERS 06/17/2011 ELISA ASHLEY APRN N 627.8 OTHER SPECIFIED MENOPAUSAL AND POSTMENOPAUSAL DISORDERS 06/17/2011 EVY PASCUAL DO K 627.8 OTHER SPECIFIED MENOPAUSAL AND POSTMENOPAUSAL DISORDERS 06/17/2011 EVY PASCUAL DO K 627.8 OTHER SPECIFIED MENOPAUSAL AND POSTMENOPAUSAL DISORDERS 06/17/2011 EVY PASCUAL DO 627.8 OTHER SPECIFIED MENOPAUSAL AND POSTMENOPAUSAL DISORDERS 09/23/2011 780.52 INSOMNIA UNSPECIFIED 09/23/2011 780.52 INSOMNIA UNSPECIFIED 09/23/2011 EVY PASCUAL DO 780.52 INSOMNIA UNSPECIFIED 09/23/2011 780.52 INSOMNIA UNSPECIFIED 09/23/2011 ELISA ASHLEY APRN N 780.52 INSOMNIA UNSPECIFIED 09/23/2011 EVY PASCUAL DO K 780.52 INSOMNIA UNSPECIFIED 09/23/2011 EVY PASCUAL DO K 780.52 INSOMNIA UNSPECIFIED 09/23/2011 EVY PASCUAL DO K 780.52 INSOMNIA UNSPECIFIED 11/28/2011 Ot 297.9 PARANOID STATE NOS 11/28/2011 Ot 305.1 TOBACCO USE DISORDER 11/28/2011 Ot 780.09 OTHER ALTERATION OF CONSCIOUSNESS 11/28/2011 Ot 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.4 POIS- BENZODIAZEPINE RAE 11/28/2011 Ot 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 12/22/2011 [...] SYNDROMES AFFECTING CERVICAL REGION 10/10/2012 PASCUAL DO, VEY K 728.85 SPASM OF MUSCLE 10/10/2012 PASCUAL DO, EVY K 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 10/10/2012 PASCUAL DO, EVY K 728.85 SPASM OF MUSCLE 10/10/2012 PASCUAL DO, EVY K 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 10/10/2012 PASCUAL DO EVY K 728.85 SPASM OF MUSCLE 12/14/2012 PASCUAL DO, EVY K 733.92 CHONDROMALACIA 12/14/2012 PASCUAL DO, EVY K 733.92 CHONDROMALACIA 12/14/2012 PASCUAL DO, EVY K 733.92 CHONDROMALACIA 01/28/2014 Ot V76.12 01/28/2014 Ot 719.06 01/28/2014 Ot 727.51 01/28/2014 Ot V76.12 01/28/2014 DIRK LOYAP Ot 793.82 01/28/2014 DIRK LOYA GARBAGE PICK UP MAN Ot V76.12 01/28/2014 DIRK LOYA GARBAGE PICK UP MAN Ot 793.80 01/28/2014 ELISA FRAIRE GARBAGE PICK UP MAN Ot 728.85 01/28/2014 DIRK LOYAP Ot 793.80 02/04/2014 Ot V76.12 02/04/2014 Ot 719.06 02/04/2014 Ot 727.51 02/04/2014 Ot V76.12 02/04/2014 DIRK LOYAP Ot 793.82 02/04/2014 DIRK LOYAP Ot V76.12 02/04/2014 DIRK LOYAP Ot 793.80 02/04/2014 ELISA FRAIREP Ot 728.85 02/04/2014 DIRK LOYAP Ot 793.80 02/05/2014 Ot V76.12 02/05/2014 Ot 719.06 02/05/2014 Ot 727.51 02/05/2014 Ot V76.12 02/05/2014 DIRK LOYAP Ot 793.82 02/05/2014 DIRK LOYA GARBAGE PICK UP MAN Ot V76.12 02/05/2014 DIRK LOYA GARBAGE PICK UP MAN Ot 793.80 02/05/2014 ELISA FRAIRE GARBAGE PICK UP MAN Ot 728.85 02/05/2014 DIRK LOYA GARBAGE PICK UP MAN Ot 793.80 02/05/2014 DIRK LOYA GARBAGE PICK UP MAN Ot 793.80 02/12/2016 Ot V76.12 OTH SCREEN MAMMO-MALIGN NEOPLASM OF JASE 02/12/2016 DIRK LOYA GARBAGE PICK UP MAN Ot 793.82 INCONCLUSIVE MAMMOGRAM 02/12/2016 DIRK LOYA GARBAGE PICK UP MAN Ot V76.12 OTH SCREEN MAMMO-MALIGN NEOPLASM OF JASE 02/12/2016 DIRK LOYA GARBAGE PICK UP MAN Ot 793.80 UNSPEC ABNORMAL MAMMOGRAM 02/12/2016 ELISA FRAIRE GARBAGE PICK UP MAN Ot 728.85 SPASM OF MUSCLE 02/12/2016 DIRK LOYA GARBAGE PICK UP MAN Ot 793.80 UNSPEC ABNORMAL MAMMOGRAM 02/12/2016 DIRK LOYA GARBAGE PICK UP MAN Ot 793.80 UNSPEC ABNORMAL MAMMOGRAM 02/18/2016 Ot V76.12 OTH SCREEN MAMMO-MALIGN NEOPLASM OF JASE 02/18/2016 DIRK LOYA GARBAGE PICK UP MAN Ot 793.82 INCONCLUSIVE MAMMOGRAM 02/18/2016 DIRK LOYA GARBAGE PICK UP MAN Ot V76.12 OTH SCREEN MAMMO-MALIGN NEOPLASM OF JASE 02/18/2016 DIRK LOYA GARBAGE PICK UP MAN Ot 793.80 UNSPEC ABNORMAL MAMMOGRAM 02/18/2016 ELISA FRAIRE GARBAGE PICK UP MAN Ot 728.85 SPASM OF MUSCLE 02/18/2016 DIRK LOYA GARBAGE PICK UP MAN Ot 793.80 UNSPEC ABNORMAL MAMMOGRAM 02/18/2016 DIRK LOYA GARBAGE PICK UP MAN Ot 793.80 UNSPEC ABNORMAL MAMMOGRAM 02/19/2016 Ot V76.12 OTH SCREEN MAMMO-MALIGN NEOPLASM OF JASE 02/19/2016 DIRK LOYA GARBAGE PICK UP MAN Ot 793.82 INCONCLUSIVE MAMMOGRAM 02/19/2016 DIRK LOYA GARBAGE PICK UP MAN Ot V76.12 OTH SCREEN MAMMO-MALIGN NEOPLASM OF JASE 02/19/2016 DIRK LOYA GARBAGE PICK UP MAN Ot 793.80 UNSPEC ABNORMAL MAMMOGRAM 02/19/2016 ELISA FRAIRE N GARBAGE PICK UP MAN Ot 728.85 SPASM OF MUSCLE 02/19/2016 DIRK LOYA GARBAGE PICK UP MAN Ot 793.80 UNSPEC ABNORMAL MAMMOGRAM 02/19/2016 DIRK LOYA GARBAGE PICK UP MAN Ot 793.80 UNSPEC ABNORMAL MAMMOGRAM 02/19/2016 SURAJ DELUNA GARBAGE PICK UP MAN Ot M48.06 SPINAL STENOSIS, LUMBAR REGION 02/19/2016 SURAJ DELUNA GARBAGE PICK UP MAN Ot Z12.31 ENCNTR SCREEN MAMMOGRAM FOR MALIGNANT NE 02/20/2016 REGISURAJ MARTINEZ GARBAGE PICK UP MAN Ot M48.06 SPINAL STENOSIS, LUMBAR REGION 02/20/2016 Ot V76.12 OTH SCREEN MAMMO-MALIGN NEOPLASM OF JASE 02/20/2016 DIRK LOYA GARBAGE PICK UP MAN Ot 793.82 INCONCLUSIVE MAMMOGRAM 02/20/2016 DIRK LOYA GARBAGE PICK UP MAN Ot V76.12 OTH SCREEN MAMMO-MALIGN NEOPLASM OF JASE 02/20/2016 DIRK LOYA GARBAGE PICK UP MAN Ot 793.80 UNSPEC ABNORMAL MAMMOGRAM 02/20/2016 ELISA FRAIRE GARBAGE PICK UP MAN Ot 728.85 SPASM OF MUSCLE 02/20/2016 DIRK LOYA GARBAGE PICK UP MAN Ot 793.80 UNSPEC ABNORMAL MAMMOGRAM 02/20/2016 DIRK LOYA GARBAGE PICK UP MAN Ot 793.80 UNSPEC ABNORMAL MAMMOGRAM 02/20/2016 SURAJ DELUNA GARBAGE PICK UP MAN Ot M48.06 SPINAL STENOSIS, LUMBAR REGION 02/20/2016 SURAJ DELUNA GARBAGE PICK UP MAN Ot Z12.31 ENCNTR SCREEN MAMMOGRAM FOR MALIGNANT NE 02/20/2016 SURAJ DELUNA GARBAGE PICK UP MAN Ot Z12.31 ENCNTR SCREEN MAMMOGRAM FOR MALIGNANT NE 03/19/2016 Ot V76.12 OTH SCREEN MAMMO-MALIGN NEOPLASM OF JASE 03/19/2016 DIRK LOYA GARBAGE PICK UP MAN Ot 793.82 INCONCLUSIVE MAMMOGRAM 03/19/2016 DIRK LOYA GARBAGE PICK UP MAN Ot V76.12 OTH SCREEN MAMMO-MALIGN NEOPLASM OF JASE 03/19/2016 DIRK LOYA GARBAGE PICK UP MAN Ot 793.80 UNSPEC ABNORMAL MAMMOGRAM 03/19/2016 ELISA FRAIRE GARBAGE PICK UP MAN Ot 728.85 SPASM OF MUSCLE 03/19/2016 DIRK LOYA GARBAGE PICK UP MAN Ot 793.80 UNSPEC ABNORMAL MAMMOGRAM 03/19/2016 DIRK LOYA GARBAGE PICK UP MAN Ot 793.80 UNSPEC ABNORMAL MAMMOGRAM 03/19/2016 SURAJ DELUNA GARBAGE PICK UP MAN Ot M54.41 LUMBAGO WITH SCIATICA, RIGHT SIDE 03/19/2016 SURAJ DELUNA GARBAGE PICK UP MAN Ot M48.06 SPINAL STENOSIS, LUMBAR REGION 03/19/2016 SURAJ DELUNAP Ot Z12.31 ENCNTR SCREEN MAMMOGRAM FOR MALIGNANT NE 03/26/2016 PRIYA RAMOS, MOO Martel Ot M43.16 SPONDYLOLISTHESIS, LUMBAR REGION 03/26/2016 MOO POWERS MD Ot M51.16 INTERVERTEBRAL DISC DISORDERS W RADICULO 03/26/2016 MOO POWERS MD Ot 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 03/26/2016 Ot V76.12 OTH SCREEN MAMMO-MALIGN NEOPLASM OF JASE 03/26/2016 DIRK LOYA GARBAGE PICK UP MAN Ot 793.82 INCONCLUSIVE MAMMOGRAM 03/26/2016 DIRK LOYA GARBAGE PICK UP MAN Ot V76.12 OTH SCREEN MAMMO-MALIGN NEOPLASM OF JASE 03/26/2016 DIRK LOYA GARBAGE PICK UP MAN Ot 793.80 UNSPEC ABNORMAL MAMMOGRAM 03/26/2016 ELISA FRAIRE GARBAGE PICK UP MAN Ot 728.85 SPASM OF MUSCLE 03/26/2016 DIRK LOYA GARBAGE PICK UP MAN Ot 793.80 UNSPEC ABNORMAL MAMMOGRAM 03/26/2016 DIRK LOYA GARBAGE PICK UP MAN Ot 793.80 UNSPEC ABNORMAL MAMMOGRAM 03/26/2016 REGI SURAJ ALATORREP Ot M54.41 LUMBAGO WITH SCIATICA, RIGHT SIDE 03/26/2016 SURAJ DELUNAP Ot M48.06 SPINAL STENOSIS, LUMBAR REGION 03/26/2016 SURAJ DELUNAP Ot Z12.31 ENCNTR SCREEN MAMMOGRAM FOR MALIGNANT NE 04/08/2016 SURAJ DELUNAP Ot M54.41 LUMBAGO WITH SCIATICA, RIGHT SIDE 04/12/2016 MOO POWERS MD Ot M43.16 SPONDYLOLISTHESIS, LUMBAR REGION 04/12/2016 MOO POWERS MD Ot M51.16 INTERVERTEBRAL DISC DISORDERS W RADICULO 04/12/2016 MOO POWERS MD Ot Z79.899 OTHER PENITENTIARY (CURRENT) DRUG THERAPY 04/14/2016 MOO POWERS MD Ot M43.16 SPONDYLOLISTHESIS, LUMBAR REGION 04/14/2016 MOO POWERS MD Ot M51.16 INTERVERTEBRAL DISC DISORDERS W RADICULO 04/14/2016 MOO POWERS MD Ot Z79.899 OTHER PENITENTIARY (CURRENT) DRUG THERAPY 05/21/2016 Ot V76.12 OTH SCREEN MAMMO-MALIGN NEOPLASM OF JASE 05/21/2016 DIRK LOYA GARBAGE PICK UP MAN Ot 793.82 INCONCLUSIVE MAMMOGRAM 05/21/2016 DIRK LOYAP Ot V76.12 OTH SCREEN MAMMO-MALIGN NEOPLASM OF JASE 05/21/2016 DIRK LOYA GARBAGE PICK UP MAN Ot 793.80 UNSPEC ABNORMAL MAMMOGRAM 05/21/2016 ELISA FRAIRE GARBAGE PICK UP MAN Ot 728.85 SPASM OF MUSCLE 05/21/2016 DIRK LOYA GARBAGE PICK UP MAN Ot 793.80 UNSPEC ABNORMAL MAMMOGRAM 05/21/2016 DIRK LOYA GARBAGE PICK UP MAN Ot 793.80 UNSPEC ABNORMAL MAMMOGRAM 05/21/2016 SURAJ DELUNA GARBAGE PICK UP MAN Ot M48.06 SPINAL STENOSIS, LUMBAR REGION 05/21/2016 SURAJ DELUNAP Ot Z12.31 ENCNTR SCREEN MAMMOGRAM FOR MALIGNANT NE 05/21/2016 Ot V76.12 OTH SCREEN MAMMO-MALIGN NEOPLASM OF JASE 05/21/2016 DIRK LOYA GARBAGE PICK UP MAN Ot 793.82 INCONCLUSIVE MAMMOGRAM 05/21/2016 DIRK LOYAP Ot V76.12 OTH SCREEN MAMMO-MALIGN NEOPLASM OF JASE 05/21/2016 DIRK LOYA GARBAGE PICK UP MAN Ot 793.80 UNSPEC ABNORMAL MAMMOGRAM 05/21/2016 YEE ELISA Kavon GARBAGE PICK UP MAN Ot 728.85 SPASM OF MUSCLE 05/21/2016 DIRK LOYA GARBAGE PICK UP MAN Ot 793.80 UNSPEC ABNORMAL MAMMOGRAM 05/21/2016 DIRK LOYA GARBAGE PICK UP MAN Ot 793.80 UNSPEC ABNORMAL MAMMOGRAM 05/21/2016 SURAJ DELUNA GARBAGE PICK UP MAN Ot M48.06 SPINAL STENOSIS, LUMBAR REGION 05/21/2016 SURAJ DELUNAP Ot Z12.31 ENCNTR SCREEN MAMMOGRAM FOR MALIGNANT NE 05/21/2016 MOO POWERS MD Ot M43.16 SPONDYLOLISTHESIS, LUMBAR REGION 05/21/2016 MOO POWERS MD Ot M51.16 INTERVERTEBRAL DISC DISORDERS W RADICULO 05/21/2016 MOO POWERS MD Ot Z79.899 OTHER PENITENTIARY (CURRENT) DRUG THERAPY 06/24/2016 Ot V76.12 06/24/2016 Ot 611.72 06/24/2016 Ot 611.72 06/24/2016 Ot 780.79 06/24/2016 Ot V16.3 06/24/2016 Ot V72.83 06/24/2016 Ot V74.8 06/24/2016 Ot V76.12 06/24/2016 Ot V76.12 OTH SCREEN MAMMO-MALIGN NEOPLASM OF JASE 06/24/2016 Ot 719.06 JOINT EFFUSION-L/LEG 06/24/2016 Ot 727.51 POPLITEAL SYNOVIAL CYST 06/24/2016 Ot V76.12 OTH SCREEN MAMMO-MALIGN NEOPLASM OF JASE 06/24/2016 DIRK LOYA GARBAGE PICK UP MAN Ot 793.82 INCONCLUSIVE MAMMOGRAM 06/24/2016 DIRK LOYAP Ot V76.12 OTH SCREEN MAMMO-MALIGN NEOPLASM OF JASE 06/24/2016 DIRK LOYA GARBAGE PICK UP MAN Ot 793.80 UNSPEC ABNORMAL MAMMOGRAM 06/24/2016 ELISA FRAIRE GARBAGE PICK UP MAN Ot 728.85 SPASM OF MUSCLE 06/24/2016 DIRK LOYA GARBAGE PICK UP MAN Ot 793.80 UNSPEC ABNORMAL MAMMOGRAM 06/24/2016 DIRK LOYA GARBAGE PICK UP MAN Ot 793.80 UNSPEC ABNORMAL MAMMOGRAM 06/24/2016 SURAJ DELUNAP Ot M48.06 SPINAL STENOSIS, LUMBAR REGION 06/24/2016 SURAJ DELUNAP Ot Z12.31 ENCNTR SCREEN MAMMOGRAM FOR MALIGNANT NE 12/17/2016 DIRK LOYA GARBAGE PICK UP MAN Ot 793.82 INCONCLUSIVE MAMMOGRAM 12/17/2016 DIRK LOYA GARBAGE PICK UP MAN Ot V76.12 OTH SCREEN MAMMO-MALIGN NEOPLASM OF JASE 12/17/2016 DIRK LOYA [employer] MAN Ot 793.80 UNSPEC ABNORMAL MAMMOGRAM 12/17/2016 ELISA FRAIRE GAR[employer] P[employer] UP MAN Ot 728.85 SPASM OF MUSCLE 12/17/2016 DIRK LOYA [employer] MAN Ot 793.80 UNSPEC ABNORMAL MAMMOGRAM 12/17/2016 DIRK LOYA [employer] MAN Ot 793.80 UNSPEC ABNORMAL MAMMOGRAM 12/17/2016 SURAJ DELUNAP Ot M48.06 SPINAL STENOSIS, LUMBAR REGION 12/17/2016 SURAJ DELUNA Ot Z12.31 ENCNTR SCREEN MAMMOGRAM FOR MALIGNANT NE 12/22/2016 JEWELS RAMOS, JONN Cunningham Ot F17.210 NICOTINE DEPENDENCE, CIGARETTES, UNCOMPL 12/22/2016 JEWELS RAMOS, JONN Cunningham Ot N39.0 URINARY TRACT INFECTION, SITE NOT SPECIF 12/22/2016 JEWELS RAMOS, JONN Cunningham Ot R11.10 VOMITING, UNSPECIFIED 12/30/2016 AUDREY DUNCAN APRN Ot 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 Procedures Code Description Performed By Performed On NARDA BAIRD 03/12/2012 75520 ROUTINE VENIPUNCTURE 03/14/2012 16633 URIC ACID 03/15/2012 14957 MAMMOGRAM, SCREENING 07/09/2012 44093 MAMMOGRAM DX, LEFT 07/11/2012 91961 US BREAST ULTRASOUND, LEFT 08/02/2012 40289 CULTURE STOOL 12/12/2012 41336 STOOL FOR O & P 12/12/2012 63657 CLOSTRIDIUM (C-DIFF) 12/13/2012 JOINT INJECTION- LARGE JOINT (SPECIFY MEDCIN DESCRIPTION) 12/14/2012 JOINT INJECTION- LARGE JOINT (SPECIFY MEDCIN DESCRIPTION) 03/15/2013 50582 XRAY KNEE RIGHT 1 OR 2 VIEWS 03/15/2013 JOINT INJECTION- LARGE JOINT (SPECIFY MEDCIN DESCRIPTION) 06/04/2013 Results Test Result Range CBC With Differential/Platelet - 12/25/15 13:26 WBC 8.6 x10E3/uL 3.4-10.8 RBC 4.60 x10E6/uL 3.77-5.28 Hemoglobin 14.2 g/dL 11.1-15.9 Hematocrit 42.2 % 34.0-46.6 MCV 92 fL 79-97 MCH 30.9 pg 26.6-33.0 MCHC 33.6 g/dL 31.5-35.7 RDW 12.9 % 12.3-15.4 Platelets 426 x10E3/uL 150-379 Neutrophils 44 % Lymphs 44 % Monocytes 9 % Eos 2 % Basos 1 % Neutrophils (Absolute) 3.8 x10E3/uL 1.4-7.0 Lymphs (Absolute) 3.8 x10E3/uL 0.7-3.1 Monocytes(Absolute) 0.7 x10E3/uL 0.1-0.9 Eos (Absolute) 0.2 x10E3/uL 0.0-0.4 Baso (Absolute) 0.1 x10E3/uL 0.0-0.2 Immature Granulocytes 0 % Immature Grans (Abs) 0.0 x10E3/uL 0.0-0.1 Hematology Comments: Note: Comp. Metabolic Panel (14) - 12/25/15 13:26 Glucose, Serum 84 mg/dL 65-99 BUN 12 mg/dL 6-24 Creatinine, Serum 0.67 mg/dL 0.57-1.00 eGFR If NonAfricn Am 104 mL/min/1.73 >59 eGFR If Africn Am 119 mL/min/1.73 >59 BUN/Creatinine Ratio 18 9-23 Sodium, Serum 142 mmol/L 136-144 Potassium, Serum 4.1 mmol/L 3.5-5.2 Chloride, Serum 99 mmol/L 97-106 Carbon Dioxide, Total 26 mmol/L 18-29 Calcium, Serum 9.1 mg/dL 8.7-10.2 Protein, Total, Serum 7.1 g/dL 6.0-8.5 Albumin, Serum 4.4 g/dL 3.5-5.5 Globulin, Total 2.7 g/dL 1.5-4.5 A/G Ratio 1.6 1.1-2.5 Bilirubin, Total 0.2 mg/dL 0.0-1.2 Alkaline Phosphatase, S 64 IU/L 39-117 AST (SGOT) 13 IU/L 0-40 ALT (SGPT) 11 IU/L 0-32 TSH - 12/25/15 13:26 TSH 2.000 uIU/mL 0.450-4.500 C-Reactive Protein, Quant - 12/25/15 13:26 C-Reactive Protein, Quant <0.3 mg/L 0.0-4.9 Genital Culture, Routine - 02/16/16 16:26 Genital Culture, Routine Note Pap Lb, HPV-hr - 02/16/16 16:26 HPV, high-risk Negative Negative DIAGNOSIS: Comment Specimen adequacy: Comment Clinician provided ICD10: Comment Performed by: Comment . . Pathologist provided ICD10: Comment Note: Comment Complete blood count (CBC) with automated white blood cell (WBC) differential - 12/22/16 17:25 Blood leukocytes automated count (number/volume) 9.0 10*3/uL 4.3-11.0 Blood erythrocytes automated count (number/volume) 4.31 10*6/uL 4.35-5.85 Venous blood hemoglobin measurement (mass/volume) 12.8 g/dL 11.5-16.0 Blood hematocrit (volume fraction) 39 % 35-52 Automated erythrocyte mean corpuscular volume 91 [foz_us] 80-99 Automated erythrocyte mean corpuscular hemoglobin (mass per erythrocyte) 30 pg 25-34 Automated erythrocyte mean corpuscular hemoglobin concentration measurement ( mass/volume) 33 g/dL 32-36 Automated erythrocyte distribution width ratio 13.4 % 10.0-14.5 Automated blood platelet count (count/volume) 357 10*3/uL 130-400 Automated blood platelet mean volume measurement 9.7 [foz_us] 7.4-10.4 Automated blood neutrophils/100 leukocytes 86 % 42-75 Automated blood lymphocytes/100 leukocytes 12 % 12-44 Blood monocytes/100 leukocytes 2 % 0-12 Automated blood eosinophils/100 leukocytes 0 % 0-10 Automated blood basophils/100 leukocytes 0 % 0-10 Blood neutrophils automated count (number/volume) 7.8 10*3 1.8-7.8 Blood lymphocytes automated count (number/volume) 1.1 10*3 1.0-4.0 Blood monocytes automated count (number/volume) 0.2 10*3 0.0-1.0 Automated eosinophil count 0.0 10*3/uL 0.0-0.3 Automated blood basophil count (count/volume) 0.0 10*3/uL 0.0-0.1 Comprehensive metabolic panel - 12/22/16 17:25 Serum or plasma sodium measurement (moles/volume) 141 mmol/L 135-145 Serum or plasma potassium measurement (moles/volume) 4.3 mmol/L 3.6-5.0 Serum or plasma chloride measurement (moles/volume) 105 mmol/L 98-107 Carbon dioxide 24 mmol/L 21-32 Serum or plasma anion gap determination (moles/volume) 12 mmol/L 5-14 Serum or plasma urea nitrogen measurement (mass/volume) 12 mg/dL 7-18 Serum or plasma creatinine measurement (mass/volume) 0.79 mg/dL 0.60-1.30 Serum or plasma urea nitrogen/creatinine mass ratio 15 NRG Serum or plasma creatinine measurement with calculation of estimated glomerular filtration rate > NRG Serum or plasma glucose measurement (mass/volume) 143 mg/dL 70-105 Serum or plasma calcium measurement (mass/volume) 10.0 mg/dL 8.5-10.1 Serum or plasma total bilirubin measurement (mass/volume) 0.5 mg/dL 0.1-1.0 Serum or plasma alkaline phosphatase measurement (enzymatic activity/volume) 66 U/L 40-136 Serum or plasma aspartate aminotransferase measurement (enzymatic activity/ volume) 19 U/L 5-34 Serum or plasma alanine aminotransferase measurement (enzymatic activity/volume ) 13 U/L 0-55 Serum or plasma protein measurement (mass/volume) 8.5 g/dL 6.4-8.2 Serum or plasma albumin measurement (mass/volume) 4.5 g/dL 3.2-4.5 Magnesium - 12/22/16 17:25 Magnesium 2.5 mg/dL 1.8-2.4 Lipase - 12/22/16 17:25 Lipase 22 U/L 8-78 Complete urinalysis with reflex to culture - 12/22/16 18:27 Urine color determination YELLOW NRG Urine clarity determination CLEAR NRG Urine pH measurement by test strip 7 5-9 Specific gravity of urine by test strip 1.005 1.016- 1.022 Urine protein assay by test strip, semi-quantitative NEGATIVE NEGATIVE Urine glucose detection by automated test strip NEGATIVE NEGATIVE Erythrocytes detection in urine sediment by light microscopy NEGATIVE NEGATIVE Urine ketones detection by automated test strip NEGATIVE NEGATIVE Urine nitrite detection by test strip NEGATIVE NEGATIVE Urine total bilirubin detection by test strip NEGATIVE NEGATIVE Urine urobilinogen measurement by automated test strip (mass/volume) NORMAL NORMAL Urine leukocyte esterase detection by dipstick 2+ NEGATIVE Automated urine sediment erythrocyte count by microscopy (number/high power field) [HPF] NRG Automated urine sediment leukocyte count by microscopy (number/high power field ) [HPF] NRG Bacteria detection in urine sediment by light microscopy TRACE NRG Squamous epithelial cells detection in urine sediment by light microscopy 1025 NRG Crystals detection in urine sediment by light microscopy NONE NRG Casts detection in urine sediment by light microscopy NONE NRG Mucus detection in urine sediment by light microscopy NEGATIVE NRG Complete urinalysis with reflex to culture YES NRG Bacterial urine culture - 12/22/16 18:27 URINE CULTURE RESULTS <10,000/ML NRG CULTURE, STOOL - 04/13/17 12:58 SALMONELLA AND SHIGELLA, CULTURE SEE NOTE NRG STOOL (C-DIFF) - 04/13/17 12:58 CLOSTRIDIUM DIFFICILE TOXIN/GDH W/REFL TO PCR SEE NOTE NRG Encounters ACCT No. Visit Date/Time Discharge Status Pt. Type Provider Facility Loc./Unit Complaint [id number] 06/04/2013 14:50:00 06/04/2013 23:59:59 CLS Outpatient EVY PASCUAL DO [id number] 03/15/2013 12:26:00 03/15/2013 23:59:59 CLS Outpatient EVY PASCUAL DO [id number] 12/14/2012 12:31:00 12/14/2012 23:59:59 CLS Outpatient EVY PASCUAL DO [id number] 12/12/2012 10:59:00 12/12/2012 23:59:59 CLS Outpatient ELISA ASHLEY APRN [id number] 03/14/2012 15:09:00 03/14/2012 23:59:59 CLS Outpatient EVY PASCUAL DO [id number] 03/10/2012 16:15:00 03/10/2012 23:59:59 CLS Outpatient [id number] 01/07/2012 09:38:00 01/07/2012 23:59:59 CLS Outpatient [id number] 07/07/2012 16:18:00 Document Registration [id number] 02/19/2016 10:05:00 Document Registration [id number] 12/22/2016 16:16:00 12/22/2016 19:50:00 DIS Emergency JEWELS RAMOS, JONN Cunningham [facility] ER VOMITING W TRACES OF BLOOD [id number] 12/17/2016 13:12:00 12/17/2016 23:59:59 CLS Outpatient AUDREY DUNCAN APRN [facility] RAD POST CONCUSSIVE SYNDROME R07.81 [id number] 05/21/2016 07:54:00 05/21/2016 08:54:00 DIS Outpatient MOO POWERS MD [facility] CARD DISC DISORDER [id number] 03/17/2016 10:30:00 04/08/2016 14:50:00 DIS Outpatient SURAJ DELUNA [facility] REHAB BACK PAIN WITH SCIATICA [id number] 03/26/2016 09:25:00 03/26/2016 10:02:00 DIS Outpatient MOO POWERS MD [facility] CARD DISC DISORDER [id number] 02/19/2016 11:44:00 02/19/2016 23:59:59 CLS Outpatient SURAJ DELUNA [facility] RAD SCREENING [id number] 02/19/2016 11:37:00 02/19/2016 23:59:59 CLS Outpatient SURAJ DELUNA [facility] RAD LUMBAGO [id number] 02/04/2014 07:39:00 02/04/2014 23:59:59 CLS Outpatient DIRK LOYA [employer] [facility] RAD FOLLOW UP L BREAST/ ABN EVAL L BREAST [id number] 01/30/2013 07:46:00 01/30/2013 23:59:59 CLS Outpatient DIRK LOYA [employer] [facility] RAD 6 MONTH FOLLOW UP [id number] 10/12/2012 08:06:00 10/12/2012 23:59:59 CLS Outpatient ALONZORichieCHRISTINEDARREN ELISA Kavon [employer] [facility] RAD NECK SPASMS [id number] 07/26/2012 14:20:00 07/26/2012 23:59:59 CLS Outpatient DIRK LOYA [employer] [facility] RAD ABN MAMMOGRAM [id number] 07/13/2012 10:49:00 07/13/2012 23:59:59 CLS Outpatient DIRK LOYA [employer] [facility] RAD SCREENING [id number] 06/24/2016 16:47:00 Document Registration [id number] 06/24/2016 16:47:00 Document Registration [id number] 06/24/2016 16:47:00 Document Registration [id number] 12/22/2011 07:40:00 Document Registration [id number] 11/28/2011 15:45:00 Document Registration [id number] 06/17/2011 09:39:00 Document Registration [id number] 03/10/2010 12:12:00 Document Registration [id number] 11/24/2009 09:11:00 Document Registration [id number] 07/01/2008 16:18:00 Document Registration [id number] 10/03/2007 11:40:00 Document Registration [id number] 07/12/2007 13:27:00 Document Registration [id number] 06/20/2007 10:17:00 Document Registration [id number] 02/04/2014 08:25:07 ACT Document Registration [id number] 12/26/2015 13:06:00 Document Registration [id number] 02/19/2016 13:06:00 Document Registration [id number] 04/13/2017 10:40:00 04/13/2017 23:59:59 CLS Outpatient SURAJ DELUNA APRN [facility] [place] [id number] 04/13/2017 10:40:00 Document Registration
[2018-03-05] MEDS ORDERED: LIDOCAINE 1% INJ 20 ML 20 ML VIAL ONE (13:09)
[2018-03-05] MEDS ORDERED: LIDOCAINE 1% INJ 20 ML 20 ML VIAL INJ ONE (13:30)
[2018-03-05] MEDS ORDERED: AUGMENTIN 875 MG TAB (AMOXICILLIN/CLAVULANATE) PO SCH (13:30)
[2018-03-05] MEDS ORDERED: TETANUS,DIPTH,PERTUSS P/F (BOOSTRIX) 0.5 ML VIAL IM ONE (13:30)
--- NOTE | 2018-03-05 13:30 | ED Integumentary General ---
General Chief Complaint: Bite-Animal/Human/Insect Stated Complaint: DOG BITE TO FACE Source: patient Exam Limitations: no limitations History of Present Illness Date Seen by Provider: Mar 05, 2018 Time Seen by Provider: 13:23 Initial Comments To ER with a dog bite to the left side of the face. This occurred just prior to arrival. Her own tetanus is not up-to-date. She was staying with another individual last night and had just met this dog last night which was a small indoor dog [place] Terrier. It had been nice all along until today at which point it bit her in the face. She states that the dog's chainstitch felled seam operator told her that it was up-to-date on rabies vaccines she states she was also told to leave the house and never come back. She does not wish to file a police report. Timing/Duration: just prior to arrival Severity: mild Location: face Associated Symptoms: denies symptoms Allergies and Home Medications Allergies Coded Allergies: No Allergy Information Available (Unverified , 11/28/11) Home Medications Citalopram Hydrobromide 10 Mg Tablet, 40 MG PO DAILY, (Reported) Omeprazole 20 Mg Tablet.dr, 20 MG PO DAILY Prescribed by: JONN COLON on 12/22/161922 Sulfamethoxazole/Trimethoprim 1 Each Tablet, 1 EACH PO BID Prescribed by: JONN COLON on 12/22/161922 Trazodone Hcl 150 Mg Tablet, 150 MG PO HS, (Reported) Patient Home Medication List Home Medication List Reviewed: Yes Review of Systems Review of Systems Constitutional: see HPI EENTM: see HPI Respiratory: no symptoms reported Cardiovascular: no symptoms reported Genitourinary: no symptoms reported Musculoskeletal: no symptoms reported Skin: see HPI Past Swjvvhh-Tvnbjo-Glxypf Hx Patient Social History Alcohol Use: Denies Use Recreational Drug Use: No Type Used: Cigarettes 2nd Hand Smoke Exposure: Yes Recent Foreign Travel: No Contact w/Someone Who Travel: No Recent Hopitalizations: No Physical Abuse: No Sexual Abuse: No Seasonal Allergies Seasonal Allergies: No Past Medical History Surgeries: Yes Orthopedic Respiratory: No Cardiac: No Neurological: No Reproductive Disorders: No Gastrointestinal: No Endocrine: No Psychosocial: Yes Blood Disorders: No Family Medical History No Pertinent Family Hx Physical Exam Vital Signs Capillary Refill : General Appearance: WD/WN, no apparent distress HEENT: PERRL/EOMI, normal ENT inspection, other (there is a 1 cm C-shaped laceration inferior to the corner of the mouth on the left. Depth is to the subcutaneous tissue.) Neck: non-tender, full range of motion Respiratory: no respiratory distress, no accessory muscle use Gastrointestinal: normal bowel sounds, non tender Extremities: normal range of motion, non-tender Neurologic/Psychiatric: alert, normal mood/affect, oriented x 3 Skin: normal color, warm/dry Procedures/Interventions Wound Location: Face Wound Length (cm): 1 Wound's Depth, Shape: linear Wound Explored: clean Irrigated w/ Saline (ccs): 30 Anesthesia: 1% Lidocaine Volume Anesthetic (ccs): 1 Suture: Prolene Suture Size: 5-0 Number of Sutures: 3 Layer Closure?: 1 Number Deep Layer Sutures: 0 Progress Anesthetized with 1 mL of lidocaine without epinephrine. Wound then scrubbed with chlorhexidine/saline solution. Then closed with 3 simple interrupted sutures size 5-0 Prolene. Progress/Results/Core Measures Results/Orders My Orders Orders - ELKIN PRINGLE APRN, Pertuss(Acell),Tet Adult (Boostrix (03/05/18 13:30) Amoxicillin/Clavulanate Tablet (Augmenti (03/05/18 13:30) Lidocaine 1% Inj 20 Ml (Xylocaine 1% Inj (03/05/18 13:30) Medications Given in ED Current Medications Medications Dose Ordered Sig/Stephie Route Start Time Stop Time Status Last Admin Dose Admin Lidocaine HCl 20 ml STK-MED ONCE .ROUTE 03/05/18 13:09 03/05/18 13:13 DC 03/05/18 13:14 10 ML Departure Communication (Admissions) We'll use Augmentin for antibiotics. I discussed with her these may be expensive and if they are too expensive once she gets to the pharmacy she should have the pharmacy call here and we can discuss cheaper options. She agrees with this. Discussed with her the unlikelihood of this being rabies as this is a small indoor dog without likely exposure to rabies and that the dog's behavior has been normal until suddenly today when it bit her. For this reason I will not recommend rabies vaccination Impression Primary Impression: Dog bite Qualified Codes: W54.0XXA - Bitten by dog, initial encounter Disposition: 01 HOME, SELF-CARE Condition: Stable Departure-Patient Inst. Decision time for Depature: 13:29 Referrals: [facility] (PCP/Family) Primary Care Physician Patient Instructions: Animal Bites (DC) Add. Discharge Instructions: 1. If you wish to make a police report they can obtain the rabies vaccination status of this dog may give you more comfort. Alternatively, the dog can be watched for 10 days to observe for any sign of rabies. The dog develops any signs then you should get rabies vaccination. And/or control/police report can help facilitate this. Take antibiotics as directed. If it is too expensive have the pharmacy call here and we can call in something cheaper. All discharge instructions reviewed with patient and/or family. Voiced understanding. Scripts Amoxicillin/Potassium Clav (Augmentin 875-125 Tablet) 1 Each Tablet 1 EACH PO BID, #10 TAB Prov: ELKIN PRINGLE APRN 03/05/18 ELKIN PRINGLE APRN Mar 05, 2018 13:30
[2018-03-05] MEDS ORDERED: AMOX-358 PO (13:34)
[2018-03-05 13:55] VITALS: BP 110/82
== END 2018-03-05 13:55 | disposition home or self-care (01) ==
LOC: EDUNIT# 12:56 → ER 12:57
DX: S01.85XA Open bite of other part of head, initial encounter (principal); Z77.22 Contact with and (suspected) exposure to environmental tobacco smoke (acute) (chronic); Z23 Encounter for immunization; W54.0XXA Bitten by dog, initial encounter
CPT/HCPCS: 90715